=== PATIENT | male | born 1975 | race Caucasian/White ===

== ENCOUNTER 2021-05-02 08:17 | Outpatient (REF) | payer BC, SELFPAY ==
[2021-05-02 12:26] LABS: Alanine Aminotransferase 22 U/L (0-40); Albumin Level 4.1 g/dL (3.5-5.0); Alkaline Phosphatase 77 U/L (39-117); Anion Gap 12 (12-20); Aspartate Amino Transferase 16 U/L (5-37); Bilirubin Total 1.5 mg/dL (0.0-1.0); Blood Urea Nitrogen 12 mg/dL (9-16); Calcium 8.9 mg/dL (8.4-10.2); Carbon Dioxide 26 mmol/L (22-29); Chloride 108 mmol/L (96-108); Cholesterol 191 mg/dL; Estimated Glomerular Filt Rate > 60; Glucose Fasting 106 mg/dL (60-99); HDL Cholesterol 38 mg/dL; LDL Cholesterol Calculated 125 mg/dl; Potassium 4.4 mmol/L (3.3-5.1); Sodium 142 mmol/L (135-145); Total Protein 6.6 g/dL (6.5-8.0); Triglycerides 140 mg/dL
[2021-05-02 12:28] LABS: Prostate Specific Antigen Scr 0.47 ng/mL (<0.05-4.0); TSH reflex Free T4 2.79 uIU/mL (0.32-4.0)
== END 2021-05-02 08:18 | disposition home or self-care (01) ==
LOC: HO.WFDLDS 08:17
PROVIDERS: Visit Provider Family Medicine
DX: Z00.00 Encounter for general adult medical examination without abnormal findings (principal); Z12.5 Encounter for screening for malignant neoplasm of prostate
CPT/HCPCS: 36415; 80053; 80061; 84153; 84443

== ENCOUNTER 2021-05-05 13:59 | Outpatient (REF) | payer BC, SELFPAY | END 2021-05-05 14:00 | disposition home or self-care (01) | LOC: HO.HMGCX 13:59 | PROVIDERS: Visit Provider Student in an Organized Health Care Education/Training Program | DX: Z13.89 Encounter for screening for other disorder (principal) ==

== ENCOUNTER 2021-05-06 09:05 | Outpatient (REF) | payer BC, SELFPAY ==
--- NOTE | ~2021-05-06 | XR_ITS ---
EXAMINATION: XR CERVICAL SPINE CLINICAL INFORMATION: Neck pain COMPARISON: None TECHNIQUE: 6 views of the cervical spine, inclusive of bilateral views, were obtained. FINDINGS: There is mild curvature of the mid cervical spine to the right. Bone alignment is otherwise normal. No fracture or dislocation is seen. Disc spaces are normal. There is moderate right-sided neural foraminal narrowing from bony osteophyte at C3-C4 C4-C5 and mild neuroforaminal narrowing at C5-C6. There is mild left-sided neural foraminal narrowing from bony osteophyte at C3-C4. Prevertebral soft tissues are normal. XR/XR cervical spine 5V IMPRESSION: Neuroforaminal narrowing from bony osteophyte, right greater than left.
== END 2021-05-06 09:06 | disposition home or self-care (01) ==
LOC: HO.HMGCX 09:05
PROVIDERS: PCP Family Medicine; Visit Provider Student in an Organized Health Care Education/Training Program
DX: M54.2 Cervicalgia (principal)
CPT/HCPCS: 72050

== ENCOUNTER 2021-06-29 17:16 | Outpatient (REF) | payer BC, SELFPAY ==
--- NOTE | ~2021-06-29 | XR_ITS ---
EXAMINATION: XR CHEST CLINICAL INFORMATION: Chest pain COMPARISON: Previous chest x-ray July 2016 TECHNIQUE: 2 views of the chest were obtained. FINDINGS: The cardiac and mediastinal contours are stable. There is slight elevation of the right hemidiaphragm that is unchanged. The lungs are clear. There is no pleural effusion or pneumothorax. Bony structures are unremarkable. XR/XR chest 2V IMPRESSION: No evidence for acute disease in the chest.
[2021-06-29 17:25] LABS: MANUAL DIFF FLAG NO
[2021-06-29 17:44] LABS: Basophils Absolute Auto 0.1 X10*3/uL (0.0-0.2); Basophils Percent Auto 0.4 % (0-2); Eosinophils Absolute Auto 0.1 X10*3/uL (0.0-0.4); Hematocrit 46.9 % (42.0-52.0); Hemoglobin 15.8 g/dl (14.0-18.0); Imm Gran Abs Auto 0.03 X10*3/uL (0.00-0.03); Imm Gran Pct Auto 0.2 % (0.0-0.4); Lymphocytes Absolute Auto 4.1 X10*3/uL (1.2-4.9); Lymphocytes Percent Auto 31.6 % (20-40); Mean Corpuscular HGB Conc 33.7 g/dl (31.0-36.0); Mean Platelet Volume 10.3 fL (9.4-12.4); Monocytes Percent Auto 7.6 % (2-11); Neutrophils Absolute Auto 7.6 x10*3/uL (2.0-8.3); Neutrophils Percent Auto 59.2 % (45-73); Platelet Count 287 X10*3/uL (160-400); Red Blood Count 5.27 X10*6/uL (4.60-5.80); Red Cell Distribution Width 12.8 % (11.0-16.0); White Blood Count 12.8 X10*3/uL (4.8-10.8)
[2021-06-29 18:09] LABS: Alanine Aminotransferase 23 U/L (0-40); Albumin Level 4.4 g/dL (3.5-5.0); Alkaline Phosphatase 83 U/L (39-117); Anion Gap 12 (12-20); Aspartate Amino Transferase 15 U/L (5-37); Bilirubin Total 1.4 mg/dL (0.0-1.0); Blood Urea Nitrogen 11 mg/dL (9-16); Calcium 9.6 mg/dL (8.4-10.2); Carbon Dioxide 29 mmol/L (22-29); Chloride 105 mmol/L (96-108); Estimated Glomerular Filt Rate > 60; Glucose Random 78 mg/dL (60-115); Potassium 4.1 mmol/L (3.3-5.1); Sodium 142 mmol/L (135-145); Total Protein 7.4 g/dL (6.5-8.0)
[2021-06-29 18:11] LABS: Troponin-I High Sensitivity < 3.5 ng/L (<3.5-35.0)
== END 2021-06-29 17:17 | disposition home or self-care (01) ==
LOC: HO.XRAY 17:16
PROVIDERS: PCP Family Medicine; Visit Provider Family Medicine
DX: Z00.00 Encounter for general adult medical examination without abnormal findings (principal); R07.9 Chest pain, unspecified
CPT/HCPCS: 36415; 71046; 80053; 84484; 85025

== ENCOUNTER 2021-07-07 11:37 | Outpatient (REF) | payer BC, SELFPAY ==
[2021-07-07 13:58] LABS: MANUAL DIFF FLAG NO
[2021-07-07 14:06] LABS: Basophils Absolute Auto 0.1 X10*3/uL (0.0-0.2); Basophils Percent Auto 0.5 % (0-2); Eosinophils Absolute Auto 0.2 X10*3/uL (0.0-0.4); Eosinophils Percent Auto 1.5 % (0-4); Hematocrit 47.2 % (42.0-52.0); Hemoglobin 15.7 g/dl (14.0-18.0); Imm Gran Abs Auto 0.03 X10*3/uL (0.00-0.03); Imm Gran Pct Auto 0.3 % (0.0-0.4); Lymphocytes Absolute Auto 3.1 X10*3/uL (1.2-4.9); Lymphocytes Percent Auto 28.9 % (20-40); Mean Corpuscular HGB Conc 33.3 g/dl (31.0-36.0); Mean Corpuscular Hemoglobin 29.7 pg (27.0-33.0); Mean Corpuscular Volume 89.4 fL (80.0-98.0); Mean Platelet Volume 11.3 fL (9.4-12.4); Monocytes Percent Auto 8.7 % (2-11); Neutrophils Absolute Auto 6.5 x10*3/uL (2.0-8.3); Neutrophils Percent Auto 60.1 % (45-73); Platelet Count 280 X10*3/uL (160-400); Red Blood Count 5.28 X10*6/uL (4.60-5.80); Red Cell Distribution Width 12.8 % (11.0-16.0); White Blood Count 10.9 X10*3/uL (4.8-10.8)
== END 2021-07-07 11:38 | disposition home or self-care (01) ==
LOC: HO.WFDLDS 11:37
PROVIDERS: Visit Provider Family Medicine
DX: R07.9 Chest pain, unspecified (principal); D72.829 Elevated white blood cell count, unspecified
CPT/HCPCS: 36415; 85025

== ENCOUNTER → 2021-07-11 10:54 | Outpatient (BNVA) | payer BC, SELFPAY | PROVIDERS: PCP Family Medicine; Referring Provider Family Medicine; Visit Provider Internal Medicine Cardiovascular Disease | DX: I10 Essential (primary) hypertension (principal) ==

== ENCOUNTER → 2021-08-04 08:48 | Outpatient (REF) | payer BC, SELFPAY ==
--- NOTE | 2021-08-04 08:50 | CA_ITS ---
Acquisition Time: 2021-08-04 09:03:03 Total Exercise Time: 00:08:29 Test Indications: cHEST PAIN Medications: SEE NOTES Protocol: MAKAYLA Max HR: 155 BPM 89% of Pred: 173 BPM Max BP: 176/082 mmHG Max Work Load: 10.1 METS Exercise stress test with exercise 8 min 29 sec of Makayla protocol, achieving 89%, 10.1 METs, without anginal symptoms, with rare isolated PVC, with normotensive response to exercise, with borderline ST changes, equivocal for ischemia: V4-V6 at peak with corrects quickly. Test reviewed with Dr Romano. Will order a stress echo for further evaluation. Referred By: Patrick Romano Overread By: SHANEL RASMUSSEN
== END ==
LOC: HO.CARD 08:48
PROVIDERS: Visit Provider Internal Medicine Cardiovascular Disease
DX: R07.9 Chest pain, unspecified (principal)
CPT/HCPCS: 93017

== ENCOUNTER → 2021-08-29 10:51 | Outpatient (REF) | payer BC, SELFPAY ==
--- NOTE | 2021-08-29 10:57 | CA_ITS ---
Acquisition Time: 2021-08-29 11:25:20 Total Exercise Time: 00:09:26 Test Indications: CP, HTN Medications: SEE CHART Protocol: MAKAYLA Max HR: 166 BPM 95% of Pred: 173 BPM Max BP: 138/078 mmHG Max Work Load: 10.8 METS Exercise stress ECHO using Makayla protcol total of 9 min 26 sec. METS 10.0, with TAPHR up to 95%. Pt tolerated well, Denies any Cardiac sx. EKG with occasional PVC's in recovery, no ischemic changes seen during exercise or in recovery. ECHO images taken at rest and immediately post peak exercise HR achieved. Definity IV used. Normotensive response to exercise Test reviewed with Dr. Romano Referred By: Cynthia Jay Overread By: Karo Lerma NP
== END ==
LOC: HO.CARD 10:51
PROVIDERS: Visit Provider Nurse Practitioner Family
DX: R94.39 Abnormal result of other cardiovascular function study (principal); R07.9 Chest pain, unspecified; I10 Essential (primary) hypertension
CPT/HCPCS: 93350; Q9957

== ENCOUNTER → 2021-08-30 12:48 | Outpatient (REF) | payer BC, SELFPAY ==
--- NOTE | 2021-08-30 12:51 | CA_ITS ---
Transthoracic Echocardiogram Patient (Last, First, Middle): Ramesh Veras, Gender: Male Date of : 1975 Age: 46 Procedure Date: 08/30/2021 Procedure Type: Transthoracic Echocardiogram Location: OP Height: 177.8 cm Weight: 107.5 kg BSA: 2.24 m2 Heart Rate: bpm BP: 124 / 78 mmHg Release Engineer: Referring MD: Patrick Romano MD Research Statistician: Patrick Romano MD Symptoms: R07.9 - Chest pain, unspecified Study Quality: Fair ECG Rhythm: Sinus Conclusions: - Normal study Findings Left Ventricle Normal left ventricular size, thickness, and systolic function. The visually estimated ejection fraction is between 60-65%. Diastolic function is normal for age. Right Ventricle Normal right ventricular cavity size and systolic function. Atria Both atria are normal in size. There is no evidence of interatrial shunt. Aortic Valve Normal aortic valve structure and function. There is no aortic valve stenosis. There is no aortic valve regurgitation. Mitral Valve Normal mitral valve structure and function. There is no mitral valve regurgitation. There is no mitral valve stenosis. Pulmonic Valve The pulmonic valve is likely normal. Tricuspid Valve Normal tricuspid valve structure. There is trace tricuspid valve regurgitation. The right ventricular systolic pressure is normal. The right ventricular systolic pressure is 14 mmHg. Normal right atrial pressure. There is no evidence of pulmonary hypertension. Great Vessels All visible segments of the aorta are normal in size. The pulmonary artery was not well visualized. Venous The inferior vena cava is normal in size and collapses greater than 50% with inspiration. Pericardium/Pleural There is no evidence of pericardial effusion. Measurements 2D Linear Measurements IVSd: 0.97 0.6-0.9/0.6-1.0 cm LVIDd: 4.15 3.9-5.3/4.2-5.9 cm LVIDd Index: 1.85 2.4-3.2/2.2-3.1 cm/m2 LVIDs: 2.36 2.0-3.6 cm LVPWd: 0.93 0.7-1.1 cm Ao Root: 3.50 2.1-3.5 cm LA Diam: 3.80 2.7-3.8/3.0-4.0 cm LAIDs Index: 1.70 1.5-2.3 cm/m2 LV Mass: 238.46 67-162/88-224 g LV Mass Index: 106.46 43-95/49-115 g/m2 LVOT Diam: 2.10 3.0+(-)1.3 cm 2D Systolic Function EF 4C: 62.30 >55% EF 2C: 56.90 >55% EF BiP: 61.10 >55% Mitral Valve MV Pk E: 0.99 MV PK A: 0.79 MV Decel Time: 195.00 E/A: 1.20 E'Lateral: 11.10 E'Medial: 8.59 E/E' Med: 11.50 E/E' Lat: 8.90 PHT: 57.00 MVA PHT: 3.86 Decel King: 5.09 Aortic Valve AoV Pk Lester: 1.41 AoV Mn Lester: 0.91 AoV VTI: 0.32 AoV Pk Grad: 8.00 Aov Mn Grad: 4.00 SANDRA Cont.VTI: 2.59 LVOT LVOT Pk Lester: 1.15 LVOT Mn Lester: 0.69 LVOT VTI: 0.24 LVOT Pk Grad: 5.00 LVOT Mn Grad: 2.00 LVOT Diam: 2.10 LVOT Area: 3.46 Diastolic Function MV Pk E: 0.99 MV Pk A: 0.79 E/A: 1.20 E'Medial: 8.59 E/E' Med: 11.50 E' Laterial: 11.10 E/E' Lat: 8.90 Tricuspid Valve TR Pk Lester: 1.69 TR Pk Grad: 11.00 RA Press: 3.00 RVSP: 14.00 Great Vessels Aorta Ao Root-2D: 3.50 2.0-3.7 cm Ao Asc: 3.50 2.1-3.4 cm Pulmonary Valve PV Pk Lester: 1.22 Peak PV Grad: 6.00 Updated in Other Vendor System with Status of Final Patrcik Romano MD electronically signed on 08/31/2021 1:52:58 PM with status of Final
== END ==
LOC: HO.CARD 12:48
PROVIDERS: Visit Provider Internal Medicine Cardiovascular Disease
DX: R07.9 Chest pain, unspecified (principal); R94.31 Abnormal electrocardiogram [ECG] [EKG]; I10 Essential (primary) hypertension
CPT/HCPCS: 93306

== ENCOUNTER 2022-05-10 08:03 | Outpatient (REF) | payer BC, SELFPAY ==
[2022-05-10 11:22] LABS: Appearance Urine Turbid; Color Urine Dark Yellow; Glucose Urine UA Negative (Negative); Leukocyte Esterase Urine Negative (Negative); Nitrite Urine Negative (Negative); PH 5.5 (5.0-9.0); Specific Gravity - Urine 1.025 (1.005-1.025); UMIC TRIGGER UA YES; Urine Blood Negative (Negative); Urine Ketones Trace mg/dL (Negative); Urine Protein 30 (1+) mg/dL (Neg-Trace)
[2022-05-10 11:34] LABS: Bacteria Urine None Seen (None Seen); Hyaline Casts Urine 0-2 /LPF (0-2); RBC Urine 0-2 /HPF (0-2); Squamous Epithelial Cell Urine 0-2 /HPF (0-2); WBC Urine 0-5 /HPF (0-5)
[2022-05-10 12:12] LABS: Alanine Aminotransferase 27 U/L (0-40); Albumin Level 4.2 g/dL (3.5-5.0); Alkaline Phosphatase 76 U/L (39-117); Anion Gap 12 (12-20); Aspartate Amino Transferase 18 U/L (5-37); Bilirubin Total 1.7 mg/dL (0.0-1.0); Blood Urea Nitrogen 11 mg/dL (9-16); Calcium 8.8 mg/dL (8.4-10.2); Carbon Dioxide 27 mmol/L (22-29); Chloride 107 mmol/L (96-108); Cholesterol 201 mg/dL; Estimated Glomerular Filt Rate > 60; Glucose Fasting 111 mg/dL (60-99); HDL Cholesterol 40 mg/dL; LDL Cholesterol Calculated 142 mg/dl; Potassium 4.4 mmol/L (3.3-5.1); Sodium 142 mmol/L (135-145); Total Protein 6.7 g/dL (6.5-8.0); Triglycerides 95 mg/dL
[2022-05-10 12:17] LABS: Prostate Specific Antigen Scr 0.72 ng/mL (<0.05-4.0); TSH reflex Free T4 1.93 uIU/mL (0.32-4.0)
[2022-05-10 12:56] LABS: Creatinine Urine 332.25 mg/dL; Microalbum/Creatinine Ratio Ur 32.8 ug/mg cr
== END 2022-05-10 08:04 | disposition home or self-care (01) ==
LOC: HO.WFDLDS 08:03
PROVIDERS: Visit Provider Family Medicine
DX: Z00.00 Encounter for general adult medical examination without abnormal findings (principal); Z12.5 Encounter for screening for malignant neoplasm of prostate; I10 Essential (primary) hypertension
CPT/HCPCS: 36415; 80053; 80061; 81001; 82043; 84153; 84443

== ENCOUNTER → 2022-06-19 13:25 | Outpatient (BNVA) | payer BC, SELFPAY | PROVIDERS: PCP Family Medicine; Visit Provider Physician Assistant | DX: Z13.89 Encounter for screening for other disorder (principal) ==

== ENCOUNTER 2022-08-22 11:18 | Outpatient (REF) | payer BC, SELFPAY ==
[2022-08-22 14:24] LABS: Alanine Aminotransferase 22 U/L (0-40); Albumin Level 4.3 g/dL (3.5-5.0); Alkaline Phosphatase 82 U/L (39-117); Anion Gap 13 (12-20); Aspartate Amino Transferase 18 U/L (5-37); Bilirubin Total 2.3 mg/dL (0.0-1.0); Blood Urea Nitrogen 12 mg/dL (9-16); Calcium 9.6 mg/dL (8.4-10.2); Carbon Dioxide 26 mmol/L (22-29); Chloride 108 mmol/L (96-108); Cholesterol 127 mg/dL; Estimated Glomerular Filt Rate > 60; Glucose Fasting 104 mg/dL (60-99); HDL Cholesterol 41 mg/dL; LDL Cholesterol Calculated 66 mg/dl; Potassium 4.3 mmol/L (3.3-5.1); Sodium 143 mmol/L (135-145); Total Protein 7.1 g/dL (6.5-8.0); Triglycerides 101 mg/dL
== END 2022-08-22 11:19 | disposition home or self-care (01) ==
LOC: HO.WFDLDS 11:18
PROVIDERS: Visit Provider Family Medicine
DX: Z00.00 Encounter for general adult medical examination without abnormal findings (principal); R73.01 Impaired fasting glucose
CPT/HCPCS: 36415; 80053; 80061; 83036

== ENCOUNTER 2022-08-28 15:42 | Outpatient (AMB) | payer BC, SELFPAY ==
--- NOTE | 2022-08-28 15:49 | A.OFFPC_ITS ---
Vital Signs 08/28/22 15:52 Height 5 ft 10 in Weight 238 lb BMI 34.1 BP 130/78 Blood Pressure Location Lt brachial Position Sitting Pulse 63 Pulse Source Pulse Oximeter Pulse Oximetry (%) 94 Oxygen Delivery Method Room Air Intake Visit Reasons: f/u hypertension and hypercholesterolemia Intake Note: Patient is here to follow up o0n his blood pressure and cholesterol. Allergies No Known Allergies Allergy (Verified 08/28/22 15:53) Tobacco use date assessed: 08/28/22 Dental Screening Dental Screen Date: 08/28/22 Did you have a dental visit in the last 12 months?: Yes Did you have a dental problem in the last 6 months where you did not have access to dental care?: No Was dental information given to patient?: No HPI f/u hypertension and hypercholesterolemia HPI Details 47 y/o male presents to f/u hypertension and hypercholesterolemia. Labs were drawn 08/22/22. Reviewed labs with pt. A1c 5.1%. Triglycerides 101. TC 127. LDL 66. HDL 41. He is on artovastatin 10mg daily. Blood pressure today 130/78. He is on lisinopril 30mg daily. 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 1. Little interest or pleasure in doing things: not at all 2. Feeling down, depressed, or hopeless: not at all 3. Trouble falling or staying asleep, or sleeping too much: not at all 4. Feeling tired or having little energy: not at all 5. Poor appetite or overeating: not at all 6. Feeling bad about yourself - or that you are a failure or have let yourself or your family down: not at all 7. Trouble concentrating on things, such as reading the newspaper or watching television: not at all 8. Moving or speaking so slowly that other people could have noticed. Or the opposite - being so fidgety or restless that you have been moving around a lot more than usual: not at all 9. Thoughts that you would be better off or of hurting yourself in some way: not at all Total score: 0 Source: Developed by Drs. Balwinder Otero, Marisa Arvizu, Sami Walker and colleagues, with an educational roxana from [employer]. Thrive Questionnaire Date Thrive assessed: 03/27/21 I am a: Patient What is your living situation today?: I have a steady place to live Within the past 12 months, did the food you bought not last and you didn't have the money to get more?: Never true Within the past 12 months, did you worry whether your food would run out before you got money to buy more?: Never true Do you have trouble paying for medicines?: No Do you have trouble getting transportation to medical appointments?: No Do you have trouble paying your heating and electricity bill?: No Do you have trouble taking care of your child, family member or friend?: No Do you have trouble with day-to-day activities such as bathing, preparing meals, shopping, managing finances, etc.?: No Are you currently unemployed and looking for a job?: No Are you interested in more education?: No AUDIT C Alcohol Use Questionnaire (AUDIT-C) 1. How often do you have a drink containing alcohol?: Never 3. How often do you have six or more drinks on one occasion?: Never Total Score: 0 JOHN-7 AMB Questionnaire JOHN-7 Date JOHN - 7 assessed: 08/28/22 Feeling nervous, anxious, or on edge: 0 = Not at all Not being able to stop or control worryin = Not at all Worrying too much about different things: 0 = Not at all Trouble relaxin = Not at all Being so restless that it is hard to sit still: 0 = Not at all Becoming easily annoyed or irritable: 0 = Not at all Feeling afraid as if something awful might happen: 0 = Not at all Total JOHN-7 score (0-4 normal; 5-9 mild; 10-14 moderate; 15-21 severe): 0 Source: Developed by Drs. Balwinder Otero, Marisa Arvizu, Sami Walker and colleagues, with an educational roxana from [employer]. Review of Systems Const Denies chills, Denies fatigue, Denies fever(s), Denies headache(s) and Denies weakness ENT Denies dizziness and Denies headache(s) Card Denies chest pain, Denies lightheadedness, Denies dyspnea and Denies other (Palpitations) Resp Denies cough, Denies dyspnea, Denies wheezing and Denies other ( shortness of breath) Musc Denies numbness and Denies tingling Neuro Denies dizziness, Denies headache(s), Denies numbness, Denies tingling, Denies paresthesias and Denies weakness Psych Denies anxiety and Denies depression Endo Denies fatigue Aller/Immun Denies wheezing Physical exam (Primary Care) Vital Signs: Last Vital Signs Pulse 63 08/28/22 15:52 BP 130/78 08/28/22 15:52 Pulse Ox 94 08/28/22 15:52 Oxygen Delivery Method Room Air 08/28/22 15:52 BMI result Body Mass Index 34.1 Tobacco/Smoking Status: Tobacco use Status Tobacco use date assessed 08/28/22 08/28/22 16:00 Patient Tobacco Use Status Never used Tobacco 08/28/22 15:51 e-Cigarette/Vaping Use Never Used 08/28/22 15:51 PHQ-9: PHQ-9 Score PHQ-9: Total score 0 08/28/22 16:24 Thrive Assessment: Date of Thrive Assessment Date Thrive assessed 03/27/21 08/28/22 15:51 Const General: no acute distress and well developed Nutritional Appearance: well nourished Orientation/consciousness: patient oriented x3 HENMT Head: Yes normocephalic and Yes atraumatic Eyes General: appearance normal, both eyes and all related structures Pupils: Equal, round and reactive pupils present EOM: EOMs intact bilaterally Resp Effort & Inspection: normal respiratory effort Auscultation: clear to auscultation bilaterally Cardio Rate: regular rate Rhythm: regular rhythm Heart sounds: S1 normal heart sound present, S2 normal heart sound present, no gallops, no murmurs and no rubs Neuro General: patient oriented x3 and gait normal Cranial nerves: Yes Equal, round and reactive pupils present Psych Affect: normal affect Assessment and Plan Assessment & Plan (1) Hypertension: Code(s): I10 - Essential (primary) hypertension Plan: Blood pressure is controlled. Goal is less than 140/90 Continue current medication (2) Hypercholesterolemia: Code(s): E78.00 - Pure hypercholesterolemia, unspecified Plan: LDL cholesterol significantly improved on atorvastatin 10 mg daily. He can take 5 mg daily or take current tablet every other day Will follow-up in 3 months (3) Elevated fasting blood sugar: Code(s): R73.01 - Impaired fasting glucose Plan: Still has elevated fasting blood sugars though he is not sure he had a good fast at this lab draw. Prior fasting blood sugar was higher. A1c is in normal range Likely insulin resistance Encouraged diet lower in sugars and starches Coding Level of Care Code Est Pt Level 4 (06448) Diagnoses Hypertension I10 Hypercholesterolemia E78.00 Elevated fasting blood sugar R73.01
[2022-08-28 15:52] VITALS: BP 130/78; PULSE 63; O2SAT 94; BMI 34.1
== END 2022-08-28 16:33 | disposition home or self-care (01) ==
PROVIDERS: Visit Provider Family Medicine
DX: I10 Essential (primary) hypertension (principal); E78.00 Pure hypercholesterolemia, unspecified; R73.01 Impaired fasting glucose
CPT/HCPCS: 99214

== ENCOUNTER 2022-11-26 09:19 | Outpatient (AMB) | payer BC, SELFPAY ==
[2022-11-26 09:50] VITALS: BP 100/68; PULSE 103; TEMP 38.3; O2SAT 97; BMI 33.7
--- NOTE | 2022-11-26 09:50 | MHC.OFFWIV ---
Intake Vital Signs 11/26/22 09:50 Height 5 ft 10 in Weight 235 lb BMI 33.7 BP 100/68 Blood Pressure Location Lt brachial Position Sitting Pulse 103 H Pulse Source Pulse Oximeter Temp 101.0 F H Temp Source Oral Pulse Oximetry (%) 97 Oxygen Delivery Method Room Air Intake Visit Reasons: EP Flu like symptoms (masked) lobby Intake Note: Pt is here today for a walk in visit. Pt c/o body aches, headaches, little bit of cough. Patient Tobacco Use Status: Never used Tobacco Allergies No Known Allergies Allergy (Verified 11/26/22 09:59) Medication List - Last Reconciled 11/26/22 by Ruddy aKtz MD atorvastatin 10 mg PO BEDTIME 90 days bisacodyl (Dulcolax (bisacodyl)) 10 mg (2 x 5 mg) PO ONCE 1 day cyclobenzaprine 10 mg PO BEDTIME lisinopril 30 mg (1.5 x 20 mg) PO DAILY meloxicam 15 mg PO DAILY polyethylene glycol 3350 (Miralax) 238 grams PO ONCE PRN 1 day Do you need a note to return to daycare/school/sports/work: No HPI EP Flu like symptoms (masked) lobby HPI Details Patient presents for a sick visit. Reporting symptoms of sinus congestion, sore throat and difficulty swallowing. Low-grade fever. No family member is sick. No recent travel. Patient reports symptoms of malaise and fatigue. 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 Current occupational exposures/hazards: No Cognitive needs: No Hearing needs: No Vision needs: No Physical Exam Vital Signs: Last Vital Signs Temp 101.0 F H 11/26/22 09:50 Pulse 103 H 11/26/22 09:50 BP 100/68 11/26/22 09:50 Pulse Ox 97 11/26/22 09:50 Oxygen Delivery Method Room Air 11/26/22 09:50 BMI result Body Mass Index 33.7 Const General: cooperative and healthy appearing Nutritional Appearance: well nourished Orientation/consciousness: patient oriented x3 Limitations: no limitations HEENT Head: Yes normal to inspection Eyes General: appearance normal, both eyes and all related structures Neck Neck: Yes normal visual inspection Chest Chest palpation & inspection: normal palpation of entire chest wall Resp Effort & Inspection: normal respiratory effort Neuro General: patient oriented x3 Assessment & Plan Assessment & Plan (1) Upper respiratory tract infection: Code(s): J06.9 - Acute upper respiratory infection, unspecified Qualifiers: URI type: unspecified viral URI Qualified Code(s): J06.9 - Acute upper respiratory infection, unspecified Plan: Increase fluid intake. Tylenol for aches and pains. If symptoms worsen, follow-up here for a recheck. No antibiotics needed. Orders: Orders SARS-CoV2/FLU/RSV Today R43.9 - Unspecified disturbances of smell and taste Coding Level of Care Code Est Pt Level 3 (67504) Diagnoses Viral upper respiratory tract infection J06.9 URI type: unspecified viral URI
== END 2022-11-26 10:55 | disposition home or self-care (01) ==
PROVIDERS: PCP Family Medicine; Visit Provider Internal Medicine
DX: J06.9 Acute upper respiratory infection, unspecified (principal)
CPT/HCPCS: 99213

== ENCOUNTER 2022-11-26 13:35 | Outpatient (REF) | payer BC, SELFPAY | END 2022-11-26 13:36 | disposition home or self-care (01) | LOC: HO.LNP 13:35 | PROVIDERS: Visit Provider Internal Medicine | DX: R43.9 Unspecified disturbances of smell and taste (principal); Z20.828 Contact with and (suspected) exposure to other viral communicable diseases | CPT/HCPCS: 0241U ==

== ENCOUNTER 2022-12-25 15:32 | Outpatient (AMB) | payer BC, SELFPAY ==
[2022-12-25 15:37] VITALS: BP 112/72; PULSE 65; O2SAT 95; BMI 34.4
--- NOTE | 2022-12-25 15:37 | A.OFFPC_ITS ---
Vital Signs 12/25/22 15:37 Height 5 ft 10 in Weight 240 lb BMI 34.4 BP 112/72 Blood Pressure Location Rt brachial Position Sitting Pulse 65 Pulse Source Pulse Oximeter Pulse Oximetry (%) 95 Oxygen Delivery Method Room Air Intake Visit Reasons: f/u hypertension and hypercholesterolemia Intake Note: Patient is here to follow up on hypertension and hypercholesterolemia today. Allergies No Known Allergies Allergy (Verified 12/25/22 15:40) Medication List - Last Reconciled 12/25/22 by Robert Olson MD atorvastatin 10 mg PO BEDTIME 90 days bisacodyl (Dulcolax (bisacodyl)) 10 mg (2 x 5 mg) PO ONCE 1 day cyclobenzaprine 10 mg PO BEDTIME lisinopril 30 mg (1.5 x 20 mg) PO DAILY meloxicam 15 mg PO DAILY polyethylene glycol 3350 (Miralax) 238 grams PO ONCE PRN 1 day Tobacco use date assessed: 12/25/22 HPI f/u hypertension and hypercholesterolemia HPI Details 47 y/o male presents to f/u hypertension and hypercholesterolemia. No recent lipid panel to review. Blood pressure today 112/72. He is on lisinopril 30mg daily. He continues to watch the salt and sodium in his diet. HPI Comments History of Present Illness Details Documentation assistance for Robetr Olson MD, was provided by [employer],?[employer] Transport Driver on 12/25/2022 3:49 PM YVETTE. I, Dr. Olsno, have read, observed, and verified documentation.? 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 Balwinder Otero, Marisa Arvizu, Sami Walker and colleagues, with an educational roxana from [employer]. Review of Systems Const Denies chills, Denies fatigue, Denies fever(s), Denies headache(s) and Denies weakness ENT Denies dizziness and Denies headache(s) Card Denies dyspnea Resp Denies cough, Denies dyspnea, Denies wheezing and Denies other (shortness of breath) Musc Denies numbness and Denies tingling Neuro Denies dizziness, Denies headache(s), Denies numbness, Denies tingling and Denies weakness Psych Denies anxiety and Denies depression Endo Denies fatigue Aller/Immun Denies wheezing Physical exam (Primary Care) Vital Signs: Last Vital Signs Pulse 65 12/25/22 15:37 BP 112/72 12/25/22 15:37 Pulse Ox 95 12/25/22 15:37 Oxygen Delivery Method Room Air 12/25/22 15:37 BMI result Body Mass Index 34.4 Tobacco/Smoking Status: Tobacco use Status Tobacco use date assessed 12/25/22 12/25/22 15:44 Patient Tobacco Use Status Never used Tobacco 12/25/22 15:38 e-Cigarette/Vaping Use Never Used 12/25/22 15:38 Thrive Assessment: Date of Thrive Assessment Date Thrive assessed 03/27/21 12/25/22 15:38 Const General: well developed; No acute distress Nutritional Appearance: well nourished and obese Orientation/consciousness: patient oriented x3 HENMT Head: Yes normocephalic and Yes atraumatic Eyes General: appearance normal, both eyes and all related structures Pupils: Equal, round and reactive pupils present EOM: EOMs intact bilaterally Resp Effort & Inspection: normal respiratory effort Auscultation: clear to auscultation bilaterally Cardio Rate: regular rate Rhythm: regular rhythm Heart sounds: S1 normal heart sound present, S2 normal heart sound present, no gallops, no murmurs and no rubs Neuro General: patient oriented x3 and gait normal Cranial nerves: Yes Equal, round and reactive pupils present Psych Affect: normal affect Assessment and Plan Assessment & Plan (1) Hypercholesterolemia: Code(s): E78.00 - Pure hypercholesterolemia, unspecified Plan: Had?decreased?atorvastatin?at?his?last?visit. Has?not?had?his?labs?drawn?yet?but?will?do?so?prior?to?next?visit Continue?atorvastatin?10?mg?daily (2) Hypertension: Code(s): I10 - Essential (primary) hypertension Plan: Blood?pressure?is?well?controlled.??Goal?is?less?than?140/90 Continue?current?medication Coding Level of Care Code Est Pt Level 3 (22015) Diagnoses Hypercholesterolemia E78.00 Hypertension I10
== END 2022-12-25 15:54 | disposition home or self-care (01) ==
PROVIDERS: PCP Family Medicine; Visit Provider Family Medicine
DX: E78.00 Pure hypercholesterolemia, unspecified (principal); I10 Essential (primary) hypertension
CPT/HCPCS: 99213

== ENCOUNTER 2023-02-05 07:27 | Day surgery (SDC) | payer BC, SELFPAY ==
[2023-02-01 11:09] VITALS: BMI 34.4
--- NOTE | 2023-02-04 12:19 | HO.ANESPROP2 ---
Documented by User: Flores Monroe NP 02/04/23 12:20 HPI - Anesthesia Eval Consult details Narrative: 47yo M for Colonoscopy PMFSH Active Problems Active Problems: All Active Problems (Updated 02/01/23 @ 11:10 by Lzia Faria RN) Upper respiratory tract infection (Acute) Lumbosacral strain (Acute) Screening for colon cancer (Acute) Hypercholesterolemia (Acute) Cough (Acute) Low HDL (under 40) (Acute) Elevated fasting blood sugar (Acute) Adult general medical exam (Acute) Family history of prostate cancer (Acute) Cervicalgia (Acute) Hypertension (Acute) Past Medical History Medical History Chest pain Elevated cholesterol Hypertension Surgical History Surgical History H/O nasal septoplasty Social History Social History Housing: Apartment Patient Tobacco Use Status: Never used Tobacco e-Cigarette/Vaping Use: Never Used Second Hand Smoke Exposure: No Are you DNR?: No Advance Directives: No Advance Directives Information Provided: Yes Nutrition Risks: No Nutritional Risk service: No Current occupational status: employed 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 Current occupational exposures/hazards: No Cognitive needs: No Hearing needs: No Vision needs: No Meds Allergies Allergy/AdvReac Type Severity Reaction Status Date / Time No Known Allergies Allergy Verified 02/05/23 07:44 Exam Height,Weight and Vital Signs: Height 5 ft 10 in Weight 108.862 kg Pertinent Lab Results Pertinent Lab Results: Laboratory Tests 07/07/21 08/22/22 11:40 11:20 WBC 10.9 H Hgb 15.7 Hct 47.2 Plt Count 280 Sodium 143 Potassium 4.3 Chloride 108 Carbon Dioxide 26 BUN 12 Creatinine 0.79 Narrative Narrative: ECHO and Stress ECHO 2021 both nml studies Assessment and Plan Assessment Anesthesia Assessment: Chart Reviewed Documented by User: Christophe Garcia MD 02/05/23 08:12 [facility] Past Medical History Medical History Chest pain Elevated cholesterol Hypertension Family History Family history of problems with anesthesia: No Surgical History Surgical History H/O nasal septoplasty History of Problems with Anesthesia: No Social History Social History Housing: Apartment Patient Tobacco Use Status: Never used Tobacco e-Cigarette/Vaping Use: Never Used Second Hand Smoke Exposure: No Are you DNR?: No Advance Directives: No Advance Directives Information Provided: Yes Nutrition Risks: No Nutritional Risk service: No Current occupational status: employed 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 Current occupational exposures/hazards: No Cognitive needs: No Hearing needs: No Vision needs: No Meds Allergies Allergy/AdvReac Type Severity Reaction Status Date / Time No Known Allergies Allergy Verified 02/05/23 07:44 Exam Airway Mallampati Class: III TM Dist: >3cm Neck ROM: Full Loose/Missing/Broken Teeth: No Heart: rrr+[id number] Lungs: cta b/l Assessment and Plan Assessment Anesthesia Assessment: Anesthesia Plan Discussed Final Anesthetic Review Family History of Problems with Anesthesia: No History of Problems with Anesthesia: No NPO: Yes ASA Class: II Final Preanesthetic Review: No Changes in Pt Med Stat, Meds/Allgs Chart Reviewed, Consent Obtained/Reviewed and Anes Risks/Benef Reviewed Patient Risk: Intermediate Procedure Risk: Intermediate Assessment/Block/Sedation in SS: Assess/Block/Sedation-SS Anesthetic Plan Anesthetic Plan: MAC: and Agree w/ Assess. and Plan Disposition: Standard PACU
[2023-02-05 07:45] VITALS: BMI 34.4
[2023-02-05] MEDS: Lactated Ringers 1,000 ML 100 ML IVCONT (07:50)
[2023-02-05 07:57] VITALS: BP 132/78; PULSE 68; RESP 18; TEMP 36.7; O2SAT 96
--- NOTE | 2023-02-05 08:30 | MHC.SHP ---
Pre-Procedural Eval Section A Date of Service: 02/05/23 Section B Chief Complaint: Encounter for screening for malignant neoplasm of Relevant Family History (Specify if Yes): No Relevant Social History: None Present Medications: see Short Stay Collaborative assessment Medical History: Significant History (HTN, HLP) History of Previous Operations: Relevant previous surgery/procedure and date(s) (septoplasty) Allergies: Allergies Allergy/AdvReac Type Severity Reaction Status Date / Time No Known Allergies Allergy Verified 02/05/23 07:44 Review of Systems Sugical H&P ROS: Negative: Constitution, Cardiovascular, Respiratory, Neurological, Psychiatric, Hem-Onc, Allergic/Immunologic, Gastrointestinal, Genitourinary, Musculoskeletal, Integumentary, Endocrine and Eyes/Ears/Nose/Throat Exam Surgical H&P Exam: Normal: HEENT, Normal: Heart, Normal: Lungs, Normal: Extremities, Normal: Abdomen, Normal: Skin and Normal: Neurological Plan Diagnosis/Plan: Unchanged I have reviewed the history and physical and performed a pertinent physical examination on my patient. No changes have occurred unless specified. Time Spent With Patient Time: Total time managing care of this patient today ____ minutes.
--- NOTE | 2023-02-05 08:30 | W.PM.OPN ---
Operative Note Operative Note Date of Service: 02/05/23 Narrative: Operative Information Procedure Description: Colonoscopy Indication: screening Anesthesia: MAC COLONOSCOPY Instrument: Olympus variable stiffness pediatric scope 190L Colonoscopy Monitoring: Vital signs and clinical assessment, continuous EKG monitoring, Pulse oximetry, Carbon Dioxide monitoring and blood pressure monitoring were done throughout the procedure. Colon withdrawal time was 20 minutes. Procedure: The patient was placed in the left lateral decubitis position and pre-procedure medications were administered. After a digital rectal examination of the ano-rectum, the video colonoscope was inserted into the rectum and advanced through the colon to the cecum/TI. The colonoscope was slowly withdrawn in a retrograde panoramic fashion and the colon mucosa was carefully examined including a retroflexed view of the rectum. Findings and interventions are described below. Procedure Difficulty: easy Findings: Terminal Ileum-normal Cecum:normal Ascending Colon: 4-5 mm sessile polyp removed with cold forceps Transverse Colon -normal Descending Colon: flat polyp 6-8 mm injected with eleview and then removed with cold snare Sigmoid Colon: normal Rectum: Retroflexion with small internal hemorrhoids, grade I, 5-7 mm sessile polyp removed with cold snare Anorectum - normal Colon preparation: Justice Bowel Preparation Scale Right colon; 2 Transverse colon: 3 Left colon; 3 (0 = Unprepared colon segment with mucosa not seen due to solid stool that cannot be cleared. 1 = Portion of mucosa of the colon segment seen, but other areas of the colon segment not well seen due to staining, residual stool and/or opaque liquid. 2 = Minor amount of residual staining, small fragments of stool and/or opaque liquid, but mucosa of colon segment seen well. 3 = Entire mucosa of colon segment seen well with no residual staining, small fragments of stool or opaque liquid) Impression and Post Procedure Diagnosis: polyps internal hemorrhoids Plan: High fiber diet leaflet Avoid straining at stool, epsom salts and sitz bath, anusol supps or cream Repeat Colonoscopy in 5-7 years if adenomatous polyps, 10 yrs if hyperplastic or benign or earlier if clinically indicated Above findings were reviewed with the patient and relevant handouts were provided if indicated.
[2023-02-05 09:10] VITALS: BP 102/61; PULSE 68; RESP 16; TEMP 36.1; O2SAT 97
[2023-02-05 09:25] VITALS: BP 133/86; PULSE 60; RESP 16; TEMP 36.2; O2SAT 98
== END 2023-02-05 09:53 | disposition home or self-care (01) ==
PROVIDERS: PCP Family Medicine; Visit Provider Internal Medicine Gastroenterology
PROC: 0DJD8ZZ Inspection of Lower Intestinal Tract, Via Natural or Artificial Opening Endoscopic (ICD-10-PCS; CPT 45378; principal; 2023-02-05 09:00)
DX: Z12.11 Encounter for screening for malignant neoplasm of colon (principal); D12.4 Benign neoplasm of descending colon; K62.1 Rectal polyp; K64.0 First degree hemorrhoids; I10 Essential (primary) hypertension; E78.00 Pure hypercholesterolemia, unspecified; Z79.899 Other long term (current) drug therapy; Z79.02 Long term (current) use of antithrombotics/antiplatelets
CPT/HCPCS: 45385; 45380; 45381; 88305; J2704

== ENCOUNTER → 2023-02-05 07:27 | Outpatient (BNV) | payer BC, SELFPAY | PROVIDERS: PCP Family Medicine; Visit Provider Internal Medicine Gastroenterology | DX: Z12.11 Encounter for screening for malignant neoplasm of colon (principal); D12.2 Benign neoplasm of ascending colon; D12.4 Benign neoplasm of descending colon; D12.8 Benign neoplasm of rectum; K64.0 First degree hemorrhoids | CPT/HCPCS: 45380; 45381; 45385 ==

== ENCOUNTER 2023-02-20 09:49 | Outpatient (AMB) | payer BC, SELFPAY ==
--- NOTE | 2023-02-20 09:54 | MHC.OFFVIS ---
Intake Vital Signs 02/20/23 09:55 Height 5 ft 10 in Weight 227 lb BMI 32.6 BP 109/71 Blood Pressure Location Lt brachial Position Sitting Pulse 60 Intake Visit Reasons: S/p colon Jack Intake Note: Patient Colonoscopy result Patient denies any GI issues. Cement Patcher Required: No Accompanied by: Self / Same As Patient Allergies No Known Allergies Allergy (Verified 02/20/23 09:54) Medication List - Last Reconciled 02/20/23 by Tatianna Greer PA-C atorvastatin 10 mg PO BEDTIME 90 days lisinopril 30 mg (1.5 x 20 mg) PO DAILY HPI HPI Comments History of Present Illness Details A 47 y/o male f/u after index screening colonoscopy with polypectomy- No issues Appetite is good Bowels ok Follows a vegan diet- No nausea, vomiting, hematemesis, hematochezia fever to [facility] Medical History (Updated 02/20/23 @ 10:04 by Tatianna Greer PA-C) Chest pain Elevated cholesterol Hypertension Surgical History Hx of colonoscopy H/O nasal septoplasty Social History Housing: Apartment Patient Tobacco Use Status: Never used Tobacco e-Cigarette/Vaping Use: Never Used Second Hand Smoke Exposure: No service: No Current occupational status: employed 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 Current occupational exposures/hazards: No Cognitive needs: No Hearing needs: No Vision needs: No Review of Systems Const All systems reviewed & are unremarkable except as noted in HPI and below Card Denies chest pain and Denies dyspnea Resp Denies dyspnea GI Denies abdominal pain Physical Exam Vital Signs: Last Vital Signs Pulse 60 02/20/23 09:55 BP 109/71 02/20/23 09:55 BMI result Body Mass Index 32.6 Const General: cooperative, healthy appearing, comfortable and no acute distress Orientation/consciousness: patient oriented x3 Limitations: no limitations Eyes Sclerae: sclerae normal Resp Effort & Inspection: normal respiratory effort and able to speak in complete sentences Skin General skin exam: no rashes or lesions noted Neuro General: patient oriented x3 Extrem General: Yes full ROM Psych Appearance: grossly normal and well kempt Mental Status: mental status grossly normal Speech and movement: Normal speech and movement present and Clear speech present Affect: normal affect Attitude: cooperative Thought process: Normal thought process present Thought content: Normal thought content present Insight: Good insight present (Psych) Judgement: Good judgement present (Psych) Results Reviewed Results Reviewed: mpression and Post Procedure Diagnosis: polyps internal hemorrhoids Plan: High fiber diet leaflet Avoid straining at stool, epsom salts and sitz bath, anusol supps or cream Repeat Colonoscopy in 5-7 years if adenomatous polyps, 10 yrs if hyperplastic or benign or earlier if clinically indicated Name: Ramesh Veras Age/Sex: 47/M Attending: Kale Jack MD : 1975 Submitted by: Kale Jack MD Copies to: Robert Olson MD MR #: [id number] Status: [facility] Collected: 02/05/23 Location: [facility] Received: 02/05/23 Diagnosis A. Colon, ascending, polypectomy: Colonic mucosa with prominent lymphoid aggregate. B. Colon, descending, polypectomy: Tubular adenoma; negative for high-grade dysplasia or carcinoma. C. Rectum, polypectomy: Colonic mucosa with prominent lymphoid aggregate. Clinical History Pre-Op Dx: Screening Post-Op Dx: Colon polyps, hemorrhoids Microscopic Description A-C. Microscopic sections reviewed. Material Received A. Ascending colon polyp B. Descending colon polyp C. Rectal polyp Gross Description Received in 3 parts. Part A: Received in formalin labeled ?ascending colon polyp? are 2 tolentino-pink irregular tissue fragments measuring 0.15 and 0.25 cm, submitted in toto in a cassette labeled A. Part B: Received in formalin labeled ?descending colon polyps (sic)? along with cloudy tolentino-yellow mucogelatinous material are 2 tolentino and tolentino-pink irregular tissue fragments each measuring 0.15 cm, submitted in toto in a cassette labeled B. Part C: Received in formalin labeled ?rectal polyp? are 2 tolentino-white and tolentino-pink irregular and rectangular tissue fragments measuring 0.25 and 0.45 cm, submitted in toto in a cassette labeled C. CEDS Copies To Robert Olson MD [address] Patient: Ramesh Veras Age/Sex: 47/M MR#: [id number] Page 1 of 2 Assessment & Plan Assessment & Plan (1) Serrated adenoma of colon: Code(s): D12.6 - Benign neoplasm of colon, unspecified Plan: All first-degree relatives should begin colon screening by age 38 Repeat colonoscopy 5 years for polyp surveillance (2) Internal hemorrhoids: Code(s): K64.8 - Other hemorrhoids Plan: Maintain high-fiber diet avoid straining Plan Place reminder for repeat colonoscopy 5 years Maintain high-fiber diet Avoid straining with hemorrhoids Patient Instructions: Repeat asymptomatic colonoscopy 5 years All first-degree relatives begin screening at age 38 Maintain high-fiber diet Avoid straining Encouraged to call questions or concerns Appreciate the opportunity assist in the care this pleasant Gent Coding Level of Care Code Est Pt Level 3 (93849) Diagnoses Serrated adenoma of colon D12.6 Internal hemorrhoids K64.8 Time Spent (min) 20
[2023-02-20 09:55] VITALS: BP 109/71; PULSE 60; BMI 32.6
== END 2023-02-20 10:51 | disposition home or self-care (01) ==
PROVIDERS: PCP Family Medicine; Visit Provider Physician Assistant
DX: D12.6 Benign neoplasm of colon, unspecified (principal); K64.8 Other hemorrhoids
CPT/HCPCS: 99213

== ENCOUNTER → 2023-02-20 09:49 | Outpatient (BNVA) | payer BC, SELFPAY | PROVIDERS: PCP Family Medicine; Visit Provider Physician Assistant ==

== ENCOUNTER 2023-03-22 08:05 | Outpatient (REF) | payer BC, SELFPAY ==
[2023-03-22 12:32] LABS: Alanine Aminotransferase 20 U/L (0-40); Alkaline Phosphatase 77 U/L (39-117); Anion Gap 12 (12-20); Aspartate Amino Transferase 14 U/L (5-37); Bilirubin Total 1.5 mg/dL (0.0-1.0); Blood Urea Nitrogen 15 mg/dL (9-16); Calcium 8.8 mg/dL (8.4-10.2); Carbon Dioxide 28 mmol/L (22-29); Chloride 106 mmol/L (96-108); Cholesterol 163 mg/dL (<200); Estimated Glomerular Filt Rate > 60; Glucose Fasting 106 mg/dL (60-99); HDL Cholesterol 45 mg/dL (>40); LDL Cholesterol Calculated 96 mg/dL (<100); Potassium 4.5 mmol/L (3.3-5.1); Sodium 141 mmol/L (135-145); Total Protein 6.9 g/dL (6.5-8.0); Triglycerides 112 mg/dL (<150)
== END 2023-03-22 08:06 | disposition home or self-care (01) ==
LOC: HO.WFDLDS 08:05
PROVIDERS: Visit Provider Family Medicine
DX: Z00.00 Encounter for general adult medical examination without abnormal findings (principal); I10 Essential (primary) hypertension; E78.00 Pure hypercholesterolemia, unspecified
CPT/HCPCS: 36415; 80053; 80061

== ENCOUNTER 2023-03-26 16:00 | Outpatient (AMB) | payer BC, SELFPAY ==
[2023-03-26 16:05] VITALS: BP 112/64; PULSE 61; O2SAT 97; BMI 32.2
--- NOTE | 2023-03-26 16:05 | MHC.PC.OV ---
Vital Signs 03/26/23 16:05 Height 5 ft 10 in Weight 224 lb 7 oz BMI 32.2 BP 112/64 Blood Pressure Location Lt brachial Position Sitting Pulse 61 Pulse Source Pulse Oximeter Pulse Oximetry (%) 97 Oxygen Delivery Method Room Air Intake Visit Reasons: f/u hypertension and hypercholesterolemia Intake Note: Patient is here to follow up 0n hypertension and hypercholeterolemia. Allergies No Known Allergies Allergy (Verified 03/26/23 16:07) Tobacco use date assessed: 03/26/23 Dental Screening Dental Screen Date: 03/26/23 Did you have a dental visit in the last 12 months?: Yes Did you have a dental problem in the last 6 months where you did not have access to dental care?: No Was dental information given to patient?: Patient has dentist HPI f/u hypertension and hypercholesterolemia HPI Details 47 y/o male presents to f/u hypertension and hypercholesterolemia. Labs were drawn 03/22/23. Reviewed labs with pt. Triglycerides 112. TC 163. LDL 96. HDL 45. He is on artovastatin 10mg daily. Blood pressure today 112/64. He is on lisinopril 30mg daily. A1c today 03/26/23 5.2%. 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 1. Little interest or pleasure in doing things: not at all 2. Feeling down, depressed, or hopeless: not at all 3. Trouble falling or staying asleep, or sleeping too much: not at all 4. Feeling tired or having little energy: not at all 5. Poor appetite or overeating: not at all 6. Feeling bad about yourself - or that you are a failure or have let yourself or your family down: not at all 7. Trouble concentrating on things, such as reading the newspaper or watching television: not at all 8. Moving or speaking so slowly that other people could have noticed. Or the opposite - being so fidgety or restless that you have been moving around a lot more than usual: not at all 9. Thoughts that you would be better off or of hurting yourself in some way: not at all Total score: 0 Source: Developed by Drs. Balwinder Otero, Marisa Arvizu, Sami Walker and colleagues, with an educational roxana from [employer]. Thrive Questionnaire Date Thrive assessed: 03/26/23 I am a: Patient What is your living situation today?: I have a steady place to live Within the past 12 months, did the food you bought not last and you didn't have the money to get more?: Never true Within the past 12 months, did you worry whether your food would run out before you got money to buy more?: Never true Do you have trouble paying for medicines?: No Do you have trouble getting transportation to medical appointments?: No Do you have trouble paying your heating and electricity bill?: No Do you have trouble taking care of your child, family member or friend?: No Do you have trouble with day-to-day activities such as bathing, preparing meals, shopping, managing finances, etc.?: No Are you currently unemployed and looking for a job?: No Are you interested in more education?: No THRIVE Score: 0 AUDIT C Alcohol Use Questionnaire (AUDIT-C) 1. How often do you have a drink containing alcohol?: Never 3. How often do you have six or more drinks on one occasion?: Never Total Score: 0 JOHN-7 AMB Questionnaire JOHN-7 Date JOHN - 7 assessed: 03/26/23 Feeling nervous, anxious, or on edge: 0 = Not at all Not being able to stop or control worryin = Not at all Worrying too much about different things: 0 = Not at all Trouble relaxin = Not at all Being so restless that it is hard to sit still: 0 = Not at all Becoming easily annoyed or irritable: 0 = Not at all Feeling afraid as if something awful might happen: 0 = Not at all Total JOHN-7 score (0-4 normal; 5-9 mild; 10-14 moderate; 15-21 severe): 0 Source: Developed by Drs. Balwinder Otero, Marisa Arvizu, Sami Walker and colleagues, with an educational roxana from [employer]. Review of Systems Const Denies chills, Denies fatigue, Denies fever(s), Denies headache(s) and Denies weakness ENT Denies dizziness and Denies headache(s) Card Denies chest pain, Denies lightheadedness, Denies dyspnea and Denies other (Palpitations) Resp Denies cough, Denies dyspnea, Denies wheezing and Denies other ( shortness of breath) Musc Denies numbness and Denies tingling Neuro Denies dizziness, Denies headache(s), Denies numbness, Denies tingling, Denies paresthesias and Denies weakness Psych Denies anxiety and Denies depression Endo Denies fatigue Aller/Immun Denies wheezing Physical exam (Primary Care) Vital Signs: Last Vital Signs Pulse 61 03/26/23 16:05 BP 112/64 03/26/23 16:05 Pulse Ox 97 03/26/23 16:05 Oxygen Delivery Method Room Air 03/26/23 16:05 BMI result Body Mass Index 32.2 Tobacco/Smoking Status: Tobacco use Status Tobacco use date assessed 03/26/23 03/26/23 16:08 Patient Tobacco Use Status Never used Tobacco 03/26/23 16:08 e-Cigarette/Vaping Use Never Used 03/26/23 16:08 PHQ-9: PHQ-9 Score PHQ-9: Total score 0 03/26/23 16:32 Thrive Assessment: Date of Thrive Assessment Date Thrive assessed 03/26/23 03/26/23 16:14 Const General: no acute distress and well developed Nutritional Appearance: well nourished Orientation/consciousness: patient oriented x3 HENMT Head: Yes normocephalic and Yes atraumatic Eyes General: appearance normal, both eyes and all related structures Pupils: Equal, round and reactive pupils present EOM: EOMs intact bilaterally Resp Effort & Inspection: normal respiratory effort Auscultation: clear to auscultation bilaterally Cardio Rate: regular rate Rhythm: regular rhythm Heart sounds: S1 normal heart sound present, S2 normal heart sound present, no gallops, no murmurs and no rubs Neuro General: patient oriented x3 and gait normal Cranial nerves: Yes Equal, round and reactive pupils present Psych Affect: normal affect Results AMB Hemoglobin A1c AMB Hemoglobin A1c 5.2 % Last Edit by Belgica Gray CMA on 03/26/23 16:42 Assessment and Plan Assessment & Plan (1) Hypertension: Code(s): I10 - Essential (primary) hypertension Plan: Blood?pressure?is?well?controlled.??Goal?is?less?than?140/90 Continue?current?medication (2) Hypercholesterolemia: Code(s): E78.00 - Pure hypercholesterolemia, unspecified Plan: Had?decreased?patient's?atorvastatin Lipids?remain?at?goal Continue?atorvastatin?10?mg?daily (3) Elevated fasting blood sugar: Code(s): R73.01 - Impaired fasting glucose Plan: Fasting?blood?sugar?elevated?at?last?lab?check?and?on?prior?lab?checks. A1c?has?been?in?normal?range Rechecking?this - A1c?today: 5.2% Work?at?diet?lower?in?sugars?and?starches Encouraged?exercise Continue?weight?loss Orders: Orders AMB Hemoglobin A1c Today Z13.9 - Encounter for screening, unspecified TSH reflex Free T4 Today Z00.00 - Encounter for general adult medical examination without abnormal findings UA and rflx microscopic Today Z00.00 - Encounter for general adult medical examination without abnormal findings Comprehensive [place]. Panel Fast Today Z00.00 - Encounter for general adult medical examination without abnormal findings Complete Blood Count Auto Diff Today Z00.00 - Encounter for general adult medical examination without abnormal findings Microalbumin, Random (w Creat) Today I10 - Essential (primary) hypertension Hemoglobin A1c Today R73.01 - Impaired fasting glucose Coding Level of Care Code Est Pt Level 3 (47193) Diagnoses Hypertension I10 Hypercholesterolemia E78.00 Elevated fasting blood sugar R73.01
== END 2023-03-26 17:00 ==
PROVIDERS: PCP Family Medicine; Visit Provider Family Medicine
DX: I10 Essential (primary) hypertension (principal); E78.00 Pure hypercholesterolemia, unspecified; R73.01 Impaired fasting glucose
CPT/HCPCS: 83036; 99213

== ENCOUNTER 2023-07-02 12:38 | Outpatient (AMB) | payer BC, SELFPAY ==
[2023-07-02 12:40] VITALS: BP 136/82; PULSE 99; TEMP 36.2; O2SAT 97; BMI 35.4
--- NOTE | 2023-07-02 12:40 | AM.OFFWIN_ITS ---
Intake Vital Signs 07/02/23 12:40 Height 5 ft 10 in Weight 247 lb BMI 35.4 BP 136/82 Blood Pressure Location Rt brachial Position Sitting Pulse 99 Pulse Source Pulse Oximeter Temp 97.2 F Temp Source Temporal Artery Scan Pulse Oximetry (%) 97 Oxygen Delivery Method Room Air Intake Visit Reasons: EST/chills bodyaches (lobby masked) Intake Note: pt is here today for chills and bodyaches started today Patient Tobacco Use Status: Never used Tobacco Allergies No Known Allergies Allergy (Verified 07/02/23 12:43) Do you need a note to return to daycare/school/sports/work: No HPI HPI Comments History of Present Illness Details Patient is a 48-year-old male in today for sick visit. He states that for past day he has experienced symptoms of sore throat, headache, cough. 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 Denies chest pain or shortness of breath, denies nausea vomiting or diarrhea. Has not tried any medication for relief. States he took an at home COVID test was negative feels he got a bad sample. 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 Oriented X3.? No acute distress.? Head: Normocephalic, Eyes: Pupils equal, round and reactive to light.? ENT: Pharynx erythema + cobblestone.?TM intact and pearly gaines. Neck: Normal inspection.? Neck supple.? CVS: Normal heart rate and rhythm.? Pulses normal.? Respiratory: No respiratory distress.? Breath sounds normal.? Neuro: Oriented X 3.? Assessment & Plan Assessment & Plan (1) Upper respiratory tract infection: Comment: Will call patient with URI swab results. Patient has been educated this is likely viral in nature, can use supportive measures for symptom relief. Patient can utilize Tylenol, Mucinex. Should make sure that he stays hydrated and rests. Code(s): J06.9 - Acute upper respiratory infection, unspecified Qualifiers: URI type: unspecified viral URI Qualified Code(s): J06.9 - Acute upper respiratory infection, unspecified Plan: Take your medications as prescribed. If you were prescribed antibiotics today, it is important that you take your medication to their entirety, do not skip any doses, do not finish them early. Follow-up with your primary care provider this week. Return to the emergency department with new or worsening symptoms. Such as fevers, chills, chest pain, shortness of breath, nausea, vomiting, dizziness, headache, vision changes, lethargy In case of emergency call 911 Orders: Orders SARS-CoV2/FLU/RSV Today J06.9 - Acute upper respiratory infection, unspecified Coding Level of Care Code Est Pt Level 3 (05123) Diagnoses Viral upper respiratory tract infection J06.9 URI type: unspecified viral URI Time Spent (min) 21
== END 2023-07-02 13:30 | disposition home or self-care (01) ==
PROVIDERS: PCP Family Medicine; Visit Provider Nurse Practitioner Primary Care
DX: J06.9 Acute upper respiratory infection, unspecified (principal)
CPT/HCPCS: 99213

== ENCOUNTER 2023-07-02 16:52 | Outpatient (REF) | payer BC, SELFPAY ==
[2023-07-02 17:54] LABS: Influenza A PCR NEGATIVE (Negative); Influenza B PCR NEGATIVE (Negative); Resp Syncy Virus RNA Qual PCR NEGATIVE (Negative); SARS COV2 PCR INHOUSE NEGATIVE (Negative)
== END 2023-07-02 16:53 | disposition home or self-care (01) ==
LOC: HO.HMGCLNP 16:52
PROVIDERS: Visit Provider Nurse Practitioner Primary Care
DX: J06.9 Acute upper respiratory infection, unspecified (principal)
CPT/HCPCS: 0241U

== ENCOUNTER 2023-07-08 08:08 | Outpatient (AMB) | payer BC, SELFPAY ==
[2023-07-08 08:13] VITALS: BP 118/74; PULSE 75; TEMP 36.5; O2SAT 97; BMI 35.2
--- NOTE | 2023-07-08 08:13 | MHC.OFFWIV ---
Intake Vital Signs 07/08/23 08:13 Height 5 ft 10 in Weight 245 lb BMI 35.2 BP 118/74 Blood Pressure Location Rt brachial Position Sitting Pulse 75 Pulse Source Pulse Oximeter Temp 97.7 F Temp Source Temporal Artery Scan Pulse Oximetry (%) 97 Oxygen Delivery Method Room Air Intake Visit Reasons: Congestion Patient Tobacco Use Status: Never used Tobacco Allergies No Known Allergies Allergy (Verified 07/08/23 08:15) Medication List - Last Reconciled 07/08/23 by ISMAEL Rosado- atorvastatin 10 mg PO BEDTIME 90 days lisinopril 30 mg (1.5 x 20 mg) PO DAILY HPI HPI Comments History of Present Illness Details Flu like sx last week, went to walk in Saturday - note reviewed. Viral swab negative. Has been self treating w/ OTC meds mucinex, APAP w/o relief since this time. Today he presents w/ severe sore throaty, dry mouth, ear congestion. Denies fever. 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 Current occupational exposures/hazards: No Cognitive needs: No Hearing needs: No Vision needs: No Review of Systems Const All systems reviewed & are unremarkable except as noted in HPI and below Physical Exam Const Other: Awake alert NAD Sclera and conjunctiva clear bilat Nares patent, turbinates pale and edematous, no sinus tenderness with palpation bilat TM intact erythematous and bulging bilat right greater than left MMM, pharynx diffuse exudative pharyngitis, managing secretions positive AC adenopathy bilat RRR LS CTAB Assessment & Plan Assessment & Plan (1) Strep pharyngitis: Code(s): J02.0 - Streptococcal pharyngitis Plan: . Plan . Medications: New amoxicillin-pot clavulanate 875-125 mg 1 tab PO BID 7 days 14 tabs 0RF Patient Instructions: Good hand hygiene and respiratory etiquette can reduce the spread of all types of group A strep infection. Hand hygiene is especially important after coughing and sneezing and before preparing foods or eating. Good respiratory etiquette involves covering your cough or sneeze. Do not share food or drinks. Treating an infected person with an antibiotic for 12 hours or longer limits their ability to transmit the bacteria. Thus, people with group A strep pharyngitis should stay home from work, school, or daycare until: They are afebrile AND At least 12?24 hours after starting appropriate antibiotic therapy I also recommend changing toothbrush and washing bed linen in hot water 24 hours after starting antibiotics Coding Level of Care Code Est Pt Level 3 (14236) Diagnoses Strep pharyngitis J02.0
== END 2023-07-08 08:23 | disposition home or self-care (01) ==
PROVIDERS: PCP Family Medicine; Visit Provider Nurse Practitioner Family
DX: J02.0 Streptococcal pharyngitis (principal)
CPT/HCPCS: 99213

== ENCOUNTER 2023-07-22 08:05 | Outpatient (AMB) | payer BC, SELFPAY ==
--- NOTE | 2023-07-22 08:17 | AM.OFFWIN_ITS ---
Intake Vital Signs 07/22/23 08:20 Height 5 ft 10 in Weight 246 lb 4 oz BMI 35.3 BP 121/68 Blood Pressure Location Rt radial Position Sitting Respiration 14 Pulse 64 Pulse Source Pulse Oximeter Temp 96.4 F L Temp Source Temporal Artery Scan Pulse Oximetry (%) 96 Oxygen Delivery Method Room Air Intake Visit Reasons: Congestion, Cough Intake Note: Cough and congestion. Had strep throat two weeks ago that is resolved. Now both ears are clogged and cant hear out of left side. Patient Tobacco Use Status: Never used Tobacco Allergies No Known Allergies Allergy (Verified 07/22/23 08:28) Medication List - Last Reconciled 07/22/23 by Ban Mann, PRODUCT TRAINER-BC atorvastatin 10 mg PO BEDTIME 90 days lisinopril 30 mg (1.5 x 20 mg) PO DAILY Do you need a note to return to daycare/school/sports/work: No HPI HPI Comments History of Present Illness Details Here today with complaints of ear congestion and cough. He was seen in the walk-in clinic 07/08/2023 and diagnosed with strep pharyngitis. He has completed his course of Augmentin. His strep throat symptoms resolved. However 1-2 days ago developed a blocked sensation in bilat ears, left worse than right along with an upper airway cough with mild chest congestion. Denies any fever, chills, hemoptysis. 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 Current occupational exposures/hazards: No Cognitive needs: No Hearing needs: No Vision needs: No Review of Systems Const All systems reviewed & are unremarkable except as noted in HPI and below Physical Exam Vital Signs: Last Vital Signs Temp 96.4 F L 07/22/23 08:20 Pulse 64 07/22/23 08:20 Resp 14 07/22/23 08:20 BP 121/68 07/22/23 08:20 Pulse Ox 96 07/22/23 08:20 Oxygen Delivery Method Room Air 07/22/23 08:20 BMI result Body Mass Index 35.3 Const Other: Awake alert NAD Sclera and conjunctiva clear bilat Nares patent, turbinates pale and edematous, no sinus tenderness with palpation bilat TM intact erythematous and bulging bilat Left greater than right MMM, pharynx WNL RRR LS CTAB Assessment & Plan Assessment & Plan (1) Eustachian tube dysfunction: Code(s): H69.90 - Unspecified Eustachian tube disorder, unspecified ear Qualifiers: Laterality: bilateral Qualified Code(s): H69.93 - Unspecified Eustachian tube disorder, bilateral Plan: . (2) Post-nasal drip: Code(s): R09.82 - Postnasal drip Plan: . Plan Total time spent caring for the patient today was 30 minutes. This includes time spent before the visit reviewing the chart, time spent during the visit, and time spent after the visit on documentation This note is constructed using voice recognition software. While every effort has been made to ensure accuracy in pastoral worker, still errors may have been included Sometimes, these errors may affect the content or meaning of the given sentence . Medications: New prednisone 50 mg PO DAILY 5 days 5 tabs 0RF fluticasone propionate 50 mcg/actuation administer into each nostril 1 spray intranasal BID 16 grams 3RF Patient Instructions: Advised today that the cough is likely related to postnasal drip. We will start him on Flonase along with an oral steroid. Educated about the chronicity of eustachian tube disorder. Encouraged self insufflation. If symptoms continue past 3 months, if he develops a fever or worsening of symptoms advised to return to the office. Coding Level of Care Code Est Pt Level 4 (52049) Diagnoses Dysfunction of both eustachian tubes H69.93 Laterality: bilateral Post-nasal drip R09.82
[2023-07-22 08:20] VITALS: BP 121/68; PULSE 64; RESP 14; TEMP 35.8; O2SAT 96; BMI 35.3
== END 2023-07-22 08:31 | disposition home or self-care (01) ==
PROVIDERS: PCP Family Medicine; Visit Provider Nurse Practitioner Family
DX: H69.93 Unspecified Eustachian tube disorder, bilateral (principal); R09.82 Postnasal drip
CPT/HCPCS: 99214

== ENCOUNTER 2023-07-30 10:47 | Outpatient (AMB) | payer BC, SELFPAY ==
[2023-07-30 10:55] VITALS: BP 126/60; PULSE 77; TEMP 36.8; O2SAT 96; BMI 35.0
--- NOTE | 2023-07-30 10:55 | AM.OFFWIN_ITS ---
Intake Vital Signs 07/30/23 10:55 Height 5 ft 10 in Weight 244 lb BMI 35.0 BP 126/60 Blood Pressure Location Lt brachial Position Sitting Pulse 77 Pulse Source Pulse Oximeter Temp 98.3 F Temp Source Oral Pulse Oximetry (%) 96 Oxygen Delivery Method Room Air Intake Visit Reasons: EP sore throat, white spots Intake Note: pt is here today for sore throat and white spots started 3 days ago Patient Tobacco Use Status: Never used Tobacco Allergies No Known Allergies Allergy (Verified 07/30/23 10:58) Do you need a note to return to daycare/school/sports/work: No HPI HPI Comments History of Present Illness Details Patient is a 48-year-old male complaining of chronic sore throat with white spots on his tonsils that reappeared 3 days ago. He also has pain with swallowing but able to handle his secretions, a dry cough but denies fevers. He states on July 02, he started feeling like he had a viral syndrome and thought it was COVID we tested but he was negative. On July 07 he was evaluated for a sore throat with white spots he could see and told he had strep and was placed on amoxicillin for 10 days which he took in full. He states he never really felt better and his head congestion just kind of lingered. He was evaluated again on July 21 because his ears were clogged and had postnasal drip and a cough, he was given steroids. But he states his symptoms never fully resolved. 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 Current occupational exposures/hazards: No Cognitive needs: No Hearing needs: No Vision needs: No Review of Systems Const All systems reviewed & are unremarkable except as noted in HPI and below Physical Exam Vital Signs: Last Vital Signs Temp 98.3 F 07/30/23 10:55 Pulse 77 07/30/23 10:55 BP 126/60 07/30/23 10:55 Pulse Ox 96 07/30/23 10:55 Oxygen Delivery Method Room Air 07/30/23 10:55 BMI result Body Mass Index 35.0 Const General: cooperative, healthy appearing, comfortable and no acute distress Orientation/consciousness: patient oriented x3 Limitations: no limitations HEENT Head: Yes normal to inspection Ears: hearing grossly normal bilaterally, external ears normal and TM's normal bilaterally General nose exam: Normal external nose present and Normal nares present Face and sinus: Yes normal facial exam and Yes sinuses nontender Mouth: Normal oral and palatal mucosa present and moist mucous membranes Throat: Yes uvula midline, Yes abnormal tonsil (white exudate and erythematous bilaterally) and Yes posterior oropharynx abnormal (Erythematous) Eyes General: appearance normal, both eyes and all related structures Neck Neck: Yes normal visual inspection Resp Effort & Inspection: normal respiratory effort, able to speak in complete sentences, Actively coughing, no respiratory distress, not tachypneic, no tripod positioning and no use of accessory muscles Skin General skin exam: no rashes or lesions noted Neuro General: patient oriented x3 Extrem General: Yes normal to inspection and Yes no clubbing, cyanosis or edema Results AMB Rapid Strep AMB Rapid Strep Negative Last Edit by ZACK Calderon on 07/30/23 11:4 0 Assessment & Plan Assessment & Plan (1) Chronic sore throat: Code(s): J31.2 - Chronic pharyngitis Plan: Rapid Strep test was negative, sent throat gonorrhea test. Centor criteria is only 1, a 5-10% chance of having strep pharyngitis. Recommended warm salt water rinses as well as hot tea with honey, I treatment plan was we have the gonorrhea test results Plan see above Orders: Orders AMB Rapid Strep Screen Today Z13.9 - Encounter for screening, unspecified CT NG by PCR Today J31.2 - Chronic pharyngitis Coding Level of Care Code Est Pt Level 3 (35571) Diagnoses Chronic sore throat J31.2
== END 2023-07-30 12:04 | disposition home or self-care (01) ==
PROVIDERS: PCP Family Medicine; Visit Provider Physician Assistant
DX: J31.2 Chronic pharyngitis (principal)
CPT/HCPCS: 87880; 99213

== ENCOUNTER 2023-07-30 11:30 | Outpatient (REF) | payer BC, SELFPAY | END 2023-07-30 11:31 | disposition home or self-care (01) | LOC: HO.LAB 11:30 | PROVIDERS: Visit Provider Physician Assistant | DX: Z13.89 Encounter for screening for other disorder (principal) ==

== ENCOUNTER 2023-08-07 15:19 | Outpatient (AMB) | payer BC, SELFPAY ==
--- NOTE | 2023-08-07 15:41 | MHC.PC.OV ---
Vital Signs 08/07/23 15:43 Height 5 ft 10 in Weight 243 lb 4 oz BMI 34.9 BP 118/66 Blood Pressure Location Rt brachial Position Sitting Pulse 70 Pulse Source Pulse Oximeter Pulse Oximetry (%) 95 Oxygen Delivery Method Room Air Intake Visit Reasons: CPE Intake Note: Patient is here for his physical today. Patient is still having allergy/post nasal drip symptoms after being seen in the walk in 3 times. 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 Balwinder Otero, Marisa Arvizu, Sami Walker and colleagues, with an educational roxana from [employer]. Physical exam (Primary Care) Vital Signs: Last Vital Signs Pulse 70 08/07/23 15:43 BP 118/66 08/07/23 15:43 Pulse Ox 95 08/07/23 15:43 Oxygen Delivery Method Room Air 08/07/23 15:43 BMI result Body Mass Index 34.9 Tobacco/Smoking Status: Tobacco use Status Tobacco use date assessed 08/07/23 08/07/23 15:46 Patient Tobacco Use Status Never used Tobacco 08/07/23 15:41 e-Cigarette/Vaping Use Never Used 08/07/23 15:41 Thrive Assessment: Date of Thrive Assessment Date Thrive assessed 03/26/23 08/07/23 15:41 Assessment and Plan Assessment & Plan (1) Adult general medical exam: Code(s): Z00.00 - Encounter for general adult medical examination without abnormal findings Plan: 48-year-old?male?presents?for?complete?physical?exam Encouraged?healthy?diet?with?active?lifestyle?and?plenty?of?exercise (2) Rhinitis: Code(s): J31.0 - Chronic rhinitis Plan: Continue?nasal?steroid Trial?azelastine Can?also?try?a?nasal?steroid (3) Left otitis media: Code(s): H66.92 - Otitis media, unspecified, left ear Plan: Likely?secondary?to?nasal?congestion Will?send?script?for?Augmentin (4) Elevated fasting blood sugar: Code(s): R73.01 - Impaired fasting glucose Plan: Prior?A1c?was?okay Will?continue?to?monitor (5) Hypertension: Code(s): I10 - Essential (primary) hypertension Plan: Blood?pressure?well?controlled.??Goal?is?less?than?140/90 Continue?current?medication (6) Hypercholesterolemia: Code(s): E78.00 - Pure hypercholesterolemia, unspecified Plan: Lipids?are?controlled Continue?atorvastatin Recheck?lipids?with?next?blood?draw (7) Screening for colon cancer: Code(s): Z12.11 - Encounter for screening for malignant neoplasm of colon Plan: Colonoscopy?in?03/09/2023?with?polyps Recommended?5?year?follow-up;?2028 (8) Screening for prostate cancer: Code(s): Z12.5 - Encounter for screening for malignant neoplasm of prostate Plan: Check?PSA Orders: Orders Prostate Specific Antigen Scr Today Z12.5 - Encounter for screening for malignant neoplasm of prostate Lipid Panel Today E78.00 - Pure hypercholesterolemia, unspecified, Z00.00 - Encounter for general adult medical examination without abnormal findings Prostate Specific Antigen Scr 1 Day Z12.5 - Encounter for screening for malignant neoplasm of prostate Microalbumin, Random (w Creat) Today I10 - Essential (primary) hypertension Comprehensive [place]. Panel Fast Today E78.00 - Pure hypercholesterolemia, unspecified, Z00.00 - Encounter for general adult medical examination without abnormal findings Medications: New amoxicillin-pot clavulanate 500-125 mg (Augmentin) 1 tab PO Q12H 10 days 20 tabs 0RF azelastine administer into each nostril 1 spray intranasal BID 30 days 30 mL 2RF Coding Level of Care Code New Pt Prev Care 40-64y(73209) Diagnoses Adult general medical exam Z00.00 Rhinitis J31.0 Left otitis media H66.92 Elevated fasting blood sugar R73.01 Hypertension I10 Hypercholesterolemia E78.00 Screening for colon cancer Z12.11 Screening for prostate cancer Z12.5
[2023-08-07 15:43] VITALS: BP 118/66; PULSE 70; O2SAT 95; BMI 34.9
== END 2023-08-07 16:21 | disposition home or self-care (01) ==
PROVIDERS: PCP Family Medicine; Visit Provider Family Medicine
DX: Z00.00 Encounter for general adult medical examination without abnormal findings (principal); J31.0 Chronic rhinitis; H66.92 Otitis media, unspecified, left ear; R73.01 Impaired fasting glucose; I10 Essential (primary) hypertension; E78.00 Pure hypercholesterolemia, unspecified; Z12.11 Encounter for screening for malignant neoplasm of colon; Z12.5 Encounter for screening for malignant neoplasm of prostate
CPT/HCPCS: 99396

== ENCOUNTER 2023-12-03 08:18 | Outpatient (REF) | payer BC, SELFPAY ==
[2023-12-03 11:11] LABS: MANUAL DIFF FLAG NO
[2023-12-03 11:27] LABS: Basophils Percent Auto 0.5 % (0-2); Eosinophils Absolute Auto 0.2 X10*3/uL (0.0-0.4); Hematocrit 46.8 % (42.0-52.0); Hemoglobin 15.8 g/dl (14.0-18.0); Imm Gran Abs Auto 0.02 X10*3/uL (0.00-0.03); Imm Gran Pct Auto 0.2 % (0.0-0.4); Lymphocytes Absolute Auto 2.7 X10*3/uL (1.2-4.9); Lymphocytes Percent Auto 32.2 % (20-40); Mean Corpuscular HGB Conc 33.8 g/dl (31.0-36.0); Mean Corpuscular Hemoglobin 29.9 pg (27.0-33.0); Mean Corpuscular Volume 88.6 fL (80.0-98.0); Mean Platelet Volume 11.1 fL (9.4-12.4); Monocytes Absolute Auto 0.6 X10*3/uL (0.1-1.2); Monocytes Percent Auto 7.2 % (2-11); Neutrophils Absolute Auto 4.9 x10*3/uL (2.0-8.3); Neutrophils Percent Auto 57.9 % (45-73); Platelet Count 252 X10*3/uL (160-400); Red Blood Count 5.28 X10*6/uL (4.60-5.80); White Blood Count 8.4 X10*3/uL (4.8-10.8)
[2023-12-03 11:45] LABS: Appearance Urine Turbid; Color Urine Dark Yellow; Glucose Urine UA Negative (Negative); Leukocyte Esterase Urine Negative (Negative); Nitrite Urine Negative (Negative); PH 5.5 (5.0-9.0); Specific Gravity - Urine >= 1.030 (1.005-1.025); UMIC TRIGGER UA YES; Urine Blood Negative (Negative); Urine Ketones Trace mg/dL (Negative); Urine Protein 30 (1+) mg/dL (Neg-Trace)
[2023-12-03 11:52] LABS: Estimated Average Glucose 105 mg/dL; Hemoglobin A1C 138.0177 umol/L; Hemoglobin A1c % 5.3 % (<6.0)
[2023-12-03 11:52] LABS: Bacteria Urine None Seen (None Seen); Hyaline Casts Urine 0-2 /LPF (0-2); RBC Urine 0-2 /HPF (0-2); Squamous Epithelial Cell Urine 0-2 /HPF (0-2); WBC Urine 0-5 /HPF (0-5)
[2023-12-03 12:07] LABS: Prostate Specific Antigen Scr 0.83 ng/mL (<0.05-4.0)
[2023-12-03 12:16] LABS: Microalbum/Creatinine Ratio Ur 37.2 ug/mg cr (<30)
[2023-12-03 12:17] LABS: Alanine Aminotransferase 23 U/L (0-40); Albumin Level 4.2 g/dL (3.5-5.0); Alkaline Phosphatase 76 U/L (39-117); Anion Gap 12 (12-20); Aspartate Amino Transferase 18 U/L (5-37); Bilirubin Total 1.6 mg/dL (0.0-1.0); Blood Urea Nitrogen 12 mg/dL (9-16); Calcium 9.2 mg/dL (8.4-10.2); Carbon Dioxide 26 mmol/L (22-29); Chloride 109 mmol/L (96-108); Cholesterol 154 mg/dL (<200); Estimated Glomerular Filt Rate > 60; Glucose Fasting 111 mg/dL (60-99); HDL Cholesterol 48 mg/dL (>40); LDL Cholesterol Calculated 86 mg/dL (<100); Potassium 3.8 mmol/L (3.3-5.1); Sodium 143 mmol/L (135-145); Total Protein 6.8 g/dL (6.5-8.0); Triglycerides 100 mg/dL (<150)
[2023-12-03 12:18] LABS: TSH reflex Free T4 2.09 uIU/mL (0.32-4.0)
== END 2023-12-03 08:19 | disposition home or self-care (01) ==
LOC: HO.WFDLDS 08:18
PROVIDERS: Visit Provider Family Medicine
DX: Z00.00 Encounter for general adult medical examination without abnormal findings (principal); E78.00 Pure hypercholesterolemia, unspecified; I10 Essential (primary) hypertension; R73.01 Impaired fasting glucose; Z12.5 Encounter for screening for malignant neoplasm of prostate
CPT/HCPCS: 36415; 80053; 80061; 81001; 82043; 82570; 83036; 84153; 84443; 85025

== ENCOUNTER 2023-12-11 15:38 | Outpatient (AMB) | payer BC, SELFPAY ==
--- NOTE | 2023-12-11 15:42 | A.OFFPC_ITS ---
Vital Signs 12/11/23 15:46 Height 5 ft 10 in Weight 248 lb BMI 35.6 BP 124/72 Blood Pressure Location Rt brachial Position Sitting Respiration 16 Pulse 72 Pulse Source Pulse Oximeter Temp 96.8 F Temp Source Temporal Artery Scan Pulse Oximetry (%) 95 Oxygen Delivery Method Room Air Intake Visit Reasons: FOLLOW UP BLOOD WORK Intake Note: F/U BLOODWORK Allergies No Known Allergies Allergy (Verified 12/11/23 15:43) Medication List - Last Reconciled 12/11/23 by Robert Olson MD atorvastatin 10 mg PO BEDTIME 90 days azelastine 1 spray intranasal BID 30 days fluticasone propionate 50 mcg/actuation 1 spray intranasal BID lisinopril 30 mg (1.5 x 20 mg) PO DAILY Tobacco use date assessed: 08/07/23 Dental Screening Dental Screen Date: 03/26/23 HPI FOLLOW UP BLOOD WORK HPI Details 48 y/o male presents to f/u hypertension , HLD, screening for prostate cancer. Blood pressure today 124/72, 72p. He is on lisinopril 30mg daily. Labs drawn 12/03/23. Reviewed labs with pt. Triglycerides 100. TC 154. LDL 86. HDL 48. He is on artovastatin 10mg. PSA 0.83. HPI Comments History of Present Illness Details Documentation assistance for Robert Olson MD, was provided by Ravi Gaming, Acoustical Tile Patternmaker on 12/11/2023 at 3:53 PM EST. I, Dr. Olson, have read, observed, and verified documentation. 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 1. Little interest or pleasure in doing things: not at all 2. Feeling down, depressed, or hopeless: not at all 3. Trouble falling or staying asleep, or sleeping too much: not at all 4. Feeling tired or having little energy: not at all 5. Poor appetite or overeating: not at all 6. Feeling bad about yourself - or that you are a failure or have let yourself or your family down: not at all 7. Trouble concentrating on things, such as reading the newspaper or watching television: not at all 8. Moving or speaking so slowly that other people could have noticed. Or the opposite - being so fidgety or restless that you have been moving around a lot more than usual: not at all 9. Thoughts that you would be better off or of hurting yourself in some way: not at all Total score: 0 Source: Developed by Drs. Balwinder Otero, Marisa Arvizu, Sami Walker and colleagues, with an educational roxana from [employer]. Thrive Questionnaire Date Thrive assessed: 12/08/23 I am a: Patient What is your living situation today?: I have a steady place to live Within the past 12 months, did the food you bought not last and you didn't have the money to get more?: Never true Within the past 12 months, did you worry whether your food would run out before you got money to buy more?: Never true Do you have trouble paying for medicines?: No Do you have trouble getting transportation to medical appointments?: No Do you have trouble paying your heating and electricity bill?: No Do you have trouble taking care of your child, family member or friend?: No Do you have trouble with day-to-day activities such as bathing, preparing meals, shopping, managing finances, etc.?: No Are you currently unemployed and looking for a job?: No Are you interested in more education?: No Please select the resources that you would like help with: None Currently or been in a relationship where the following occur: No concerns reported THRIVE Score: 0 AUDIT C Alcohol Use Questionnaire (AUDIT-C) 1. How often do you have a drink containing alcohol?: Never Total Score: 0 JOHN-7 AMB Questionnaire JOHN-7 Date JOHN - 7 assessed: 03/26/23 Feeling nervous, anxious, or on edge: 0 = Not at all Not being able to stop or control worryin = Not at all Worrying too much about different things: 0 = Not at all Trouble relaxin = Not at all Being so restless that it is hard to sit still: 0 = Not at all Becoming easily annoyed or irritable: 0 = Not at all Feeling afraid as if something awful might happen: 0 = Not at all Total JOHN-7 score (0-4 normal; 5-9 mild; 10-14 moderate; 15-21 severe): 0 Source: Developed by Drs. Balwinder Otero, Marisa Arvizu, Sami Walker and colleagues, with an educational roxana from [employer]. Review of Systems Const Denies chills, Denies fatigue, Denies fever(s), Denies headache(s) and Denies weakness ENT Denies dizziness and Denies headache(s) Card Denies chest pain, Denies lightheadedness, Denies dyspnea and Denies other (Palpitations) Resp Denies cough, Denies dyspnea, Denies wheezing and Denies other ( shortness of breath) Musc Denies numbness and Denies tingling Neuro Denies dizziness, Denies headache(s), Denies numbness, Denies tingling, Denies paresthesias and Denies weakness Psych Denies anxiety and Denies depression Endo Denies fatigue Aller/Immun Denies wheezing Physical exam (Primary Care) Vital Signs: Last Vital Signs Temp 96.8 F 12/11/23 15:46 Pulse 72 12/11/23 15:46 Resp 16 12/11/23 15:46 BP 124/72 12/11/23 15:46 Pulse Ox 95 12/11/23 15:46 Oxygen Delivery Method Room Air 12/11/23 15:46 BMI result Body Mass Index 35.6 Tobacco/Smoking Status: Tobacco use Status Tobacco use date assessed 08/07/23 12/11/23 15:46 Patient Tobacco Use Status Never used Tobacco 12/11/23 15:46 e-Cigarette/Vaping Use Never Used 12/11/23 15:46 PHQ-9: PHQ-9 Score PHQ-9: Total score 0 12/11/23 15:53 Thrive Assessment: Date of Thrive Assessment Date Thrive assessed 12/08/23 12/11/23 15:46 Currently or been in a relationship where the following occur: No concerns reported Const General: no acute distress and well developed Nutritional Appearance: well nourished Orientation/consciousness: patient oriented x3 HENMT Head: Yes normocephalic and Yes atraumatic Eyes General: appearance normal, both eyes and all related structures Pupils: Equal, round and reactive pupils present EOM: EOMs intact bilaterally Resp Effort & Inspection: normal respiratory effort Auscultation: clear to auscultation bilaterally Cardio Rate: regular rate Rhythm: regular rhythm Heart sounds: S1 normal heart sound present, S2 normal heart sound present, no gallops, no murmurs and no rubs Neuro General: patient oriented x3 and gait normal Cranial nerves: Yes Equal, round and reactive pupils present Psych Affect: normal affect Coding Level of Care Code Est Pt Level 4 (98061) Diagnoses Hypertension I10 Hypercholesterolemia E78.00 Screening for prostate cancer Z12.5 Microalbuminuria R80.9 Elevated fasting blood sugar R73.01 Assessment & Plan Assessment & Plan (1) Hypertension: Code(s): I10 - Essential (primary) hypertension Category: Medical Plan: Blood?pressure?appears?well?controlled.??Goal?is?less?than?140/90 Continue?current?medication (2) Hypercholesterolemia: Code(s): E78.00 - Pure hypercholesterolemia, unspecified Category: Medical Plan: Lipids?are?well?controlled?on?atorvastatin Continue?current?med (3) Screening for prostate cancer: Code(s): Z12.5 - Encounter for screening for malignant neoplasm of prostate Category: Medical Plan: PSA?is?within?normal?limits Will?continue?annual?screening (4) Microalbuminuria: Code(s): R80.9 - Proteinuria, unspecified Category: Medical Plan: Mildly?elevated?microalbumin?levels Patient?does?have?mildly?elevated?fasting?blood?sugar?and?I?encouraged?him?to?wo rk?on?this-see?above Encouraged?good?hydration?and?weight?loss Will?follow (5) Elevated fasting blood sugar: Code(s): R73.01 - Impaired fasting glucose Category: Medical Plan: Elevated?fasting?blood?sugar?and?A1c?is?still?in?normal?range Encouraged?a?diet?lower?in?sugars?and?starches Encouraged?exercise?and?weight?loss Orders: Orders Microalbumin, Random (w Creat) Today I10 - Essential (primary) hypertension, R80.9 - Proteinuria, unspecified Comprehensive [place]. Panel Fast Today I10 - Essential (primary) hypertension, Z00.00 - Encounter for general adult medical examination without abnormal findin gs Hemoglobin A1c Today R73.01 - Impaired fasting glucose
[2023-12-11 15:46] VITALS: BP 124/72; PULSE 72; RESP 16; TEMP 36; O2SAT 95; BMI 35.6
== END 2023-12-11 16:14 | disposition home or self-care (01) ==
PROVIDERS: PCP Family Medicine; Visit Provider Family Medicine
DX: I10 Essential (primary) hypertension (principal); E78.00 Pure hypercholesterolemia, unspecified; Z12.5 Encounter for screening for malignant neoplasm of prostate; R80.9 Proteinuria, unspecified; R73.01 Impaired fasting glucose

== ENCOUNTER → 2023-12-11 15:38 | Outpatient (BNVA) | payer BC, SELFPAY | PROVIDERS: PCP Family Medicine; Visit Provider Family Medicine ==

== ENCOUNTER 2024-05-05 08:16 | Outpatient (REF) | payer BC, SELFPAY ==
[2024-05-05 11:28] LABS: Appearance Urine Clear; Color Urine Dark Yellow; Glucose Urine UA Negative (Negative); Leukocyte Esterase Urine Negative (Negative); Nitrite Urine Negative (Negative); PH 5.5 (5.0-9.0); Specific Gravity - Urine 1.025 (1.005-1.025); UMIC TRIGGER UA YES; Urine Blood Negative (Negative); Urine Ketones Trace mg/dL (Negative); Urine Protein 30 (1+) mg/dL (Neg-Trace)
[2024-05-05 11:32] LABS: Bacteria Urine None Seen (None Seen); Hyaline Casts Urine 0-2 /LPF (0-2); RBC Urine 0-2 /HPF (0-2); Squamous Epithelial Cell Urine 0-2 /HPF (0-2); WBC Urine 0-5 /HPF (0-5)
[2024-05-05 11:37] LABS: Estimated Average Glucose 108 mg/dL; Hemoglobin A1c % 5.4 % (<6.0)
[2024-05-05 11:55] LABS: Alanine Aminotransferase 24 U/L (0-40); Alkaline Phosphatase 76 U/L (39-117); Anion Gap 12 (12-20); Aspartate Amino Transferase 18 U/L (5-37); Bilirubin Total 1.3 mg/dL (0.0-1.0); Blood Urea Nitrogen 10 mg/dL (9-16); Calcium 8.7 mg/dL (8.4-10.2); Carbon Dioxide 25 mmol/L (22-29); Chloride 109 mmol/L (96-108); Estimated Glomerular Filt Rate > 60; Glucose Fasting 103 mg/dL (60-99); Sodium 142 mmol/L (135-145); Total Protein 6.9 g/dL (6.5-8.0)
[2024-05-05 11:59] LABS: Prostate Specific Antigen Scr 0.92 ng/mL (<0.05-4.0)
[2024-05-05 12:05] LABS: Creatinine Urine 287.88 mg/dL; Microalbum/Creatinine Ratio Ur 29.5 ug/mg cr (<30)
== END 2024-05-05 08:17 | disposition home or self-care (01) ==
LOC: HO.WFDLDS 08:16
PROVIDERS: Visit Provider Family Medicine
DX: Z00.00 Encounter for general adult medical examination without abnormal findings (principal); Z12.5 Encounter for screening for malignant neoplasm of prostate; I10 Essential (primary) hypertension; E78.00 Pure hypercholesterolemia, unspecified; R73.01 Impaired fasting glucose
CPT/HCPCS: 36415; 80053; 81001; 82043; 82570; 83036; 84153

== ENCOUNTER 2024-05-12 08:33 | Outpatient (AMB) | payer BC, SELFPAY ==
--- NOTE | 2024-05-12 08:45 | MHC.PC.OV ---
Vital Signs 05/12/24 08:55 Height 5 ft 10 in Weight 256 lb BMI 36.7 BP 110/80 Blood Pressure Location Lt brachial Position Sitting Respiration 4 L Pulse 64 Pulse Source Pulse Oximeter Temp 98.5 F Temp Source Oral Pulse Oximetry (%) 95 Oxygen Delivery Method Room Air Intake Visit Reasons: Follow Up-Meds. 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 Review HPI Details 49 y/o male presents today to f/u chronic conditions. A1c 5.4%. Blood pressure today 110/80, 64p. He is on lisinopril 20mg a day. Labs drawn 05/05/24. Reviewed labs with pt. A1c 5.4%. Microalb/Creat Ratio 29.5. 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 1. Little interest or pleasure in doing things: not at all 2. Feeling down, depressed, or hopeless: not at all 3. Trouble falling or staying asleep, or sleeping too much: not at all 4. Feeling tired or having little energy: not at all 5. Poor appetite or overeating: not at all 6. Feeling bad about yourself - or that you are a failure or have let yourself or your family down: not at all 7. Trouble concentrating on things, such as reading the newspaper or watching television: not at all 8. Moving or speaking so slowly that other people could have noticed. Or the opposite - being so fidgety or restless that you have been moving around a lot more than usual: not at all 9. Thoughts that you would be better off or of hurting yourself in some way: not at all Total score: 0 Source: Developed by Drs. Balwinder Otero, Marisa Arvizu, Sami Walker and colleagues, with an educational roxana from [employer]. Thrive Questionnaire Date Thrive assessed: 05/06/24 I am a: Patient What is your living situation today?: I have a steady place to live Within the past 12 months, did the food you bought not last and you didn't have the money to get more?: Never true Within the past 12 months, did you worry whether your food would run out before you got money to buy more?: Never true Do you have trouble paying for medicines?: No Do you have trouble getting transportation to medical appointments?: No Do you have trouble paying your heating and electricity bill?: No Do you have trouble taking care of your child, family member or friend?: No Do you have trouble with day-to-day activities such as bathing, preparing meals, shopping, managing finances, etc.?: No Are you currently unemployed and looking for a job?: No Are you interested in more education?: No Please select the resources that you would like help with: None Currently or been in a relationship where the following occur: No concerns reported THRIVE Score: 0 AUDIT C Alcohol Use Questionnaire (AUDIT-C) 1. How often do you have a drink containing alcohol?: Never Total Score: 0 JOHN-7 AMB Questionnaire JOHN-7 Date JOHN - 7 assessed: 03/26/23 Feeling nervous, anxious, or on edge: 0 = Not at all Not being able to stop or control worryin = Not at all Worrying too much about different things: 0 = Not at all Trouble relaxin = Not at all Being so restless that it is hard to sit still: 0 = Not at all Becoming easily annoyed or irritable: 0 = Not at all Feeling afraid as if something awful might happen: 0 = Not at all Total JOHN-7 score (0-4 normal; 5-9 mild; 10-14 moderate; 15-21 severe): 0 Source: Developed by Drs. Balwinder Otero, Marisa Arvizu, Sami Walker and colleagues, with an educational roxana from [employer]. Review of Systems Const Denies chills, Denies fatigue, Denies fever(s), Denies headache(s) and Denies weakness ENT Denies dizziness and Denies headache(s) Card Denies dyspnea Resp Denies cough, Denies dyspnea, Denies wheezing and Denies other (shortness of breath) Musc Denies numbness and Denies tingling Neuro Denies dizziness, Denies headache(s), Denies numbness, Denies tingling and Denies weakness Psych Denies anxiety and Denies depression Endo Denies fatigue Aller/Immun Denies wheezing Physical exam (Primary Care) Tobacco/Smoking Status: Tobacco use Status Tobacco use date assessed 08/07/23 05/12/24 08:45 Patient Tobacco Use Status Never used Tobacco 05/12/24 08:45 e-Cigarette/Vaping Use Never Used 05/12/24 08:45 PHQ-9: PHQ-9 Score PHQ-9: Total score 0 05/12/24 08:57 Thrive Assessment: Date of Thrive Assessment Date Thrive assessed 05/06/24 05/12/24 08:45 Currently or been in a relationship where the following occur: No concerns reported Const General: well developed; No acute distress Nutritional Appearance: well nourished and obese Orientation/consciousness: patient oriented x3 [facility] [place] Head: Yes normocephalic and Yes atraumatic Eyes General: appearance normal, both eyes and all related structures Pupils: Equal, round and reactive pupils present EOM: EOMs intact bilaterally Resp Effort & Inspection: normal respiratory effort Neuro General: patient oriented x3 and gait normal Cranial nerves: Yes Equal, round and reactive pupils present Psych Affect: normal affect Coding Level of Care Code Est Pt Level 3 (95360) Diagnoses Hypertension I10 Microalbuminuria R80.9 Elevated fasting blood sugar R73.01 Assessment & Plan Assessment & Plan (1) Hypertension: Code(s): I10 - Essential (primary) hypertension Category: Medical Plan: Blood?pressure?is?controlled.??Goal?is?less?than?140/90 He?has?been?taking?lisinopril?20?mg?daily?and?I?have?updated?his?med?list?to?reflect?this. Continue?lisinopril?20?mg?daily. (2) Microalbuminuria: Code(s): R80.9 - Proteinuria, unspecified Category: Medical Plan: As?above,?patient?is?on?lisinopril Microalbumin?creatinine?ratio?less?than?30 Will?continue?to?monitor (3) Elevated fasting blood sugar: Code(s): R73.01 - Impaired fasting glucose Category: Medical Plan: Fasting?blood?sugars?have?been?elevated.??His?A1c?is?still?normal?range Keep?working?at?a?diet?lower?in?sugars?and?starches Encouraged?exercise?and?weight?loss Will?continue?to?monitor Orders: Orders Comprehensive [place]. Panel Fast Today Z00.00 - Encounter for general adult medical examination without abnormal findings Microalbumin, Random (w Creat) Today I10 - Essential (primary) hypertension AMB Hemoglobin A1c Today R73.01 - Impaired fasting glucose Hemoglobin A1c Today R73.01 - Impaired fasting glucose Medications: Changed From lisinopril 30 mg (1.5 x 20 mg) PO DAILY 45 tabs 0RF To lisinopril 20 mg PO DAILY 45 tabs 0RF
[2024-05-12 08:55] VITALS: BP 110/80; PULSE 64; RESP 4; TEMP 36.9; O2SAT 95; BMI 36.7
== END 2024-05-12 09:09 | disposition home or self-care (01) ==
LOC: HO.HMCFM 08:34
PROVIDERS: PCP Family Medicine; Visit Provider Family Medicine
DX: I10 Essential (primary) hypertension (principal); R80.9 Proteinuria, unspecified; R73.01 Impaired fasting glucose

== ENCOUNTER → 2024-05-12 08:33 | Outpatient (BNVA) | payer BC, SELFPAY | PROVIDERS: PCP Family Medicine; Visit Provider Family Medicine ==

== ENCOUNTER 2024-08-26 08:09 | Outpatient (REF) | payer BC, SELFPAY ==
[2024-08-26 11:28] LABS: Appearance Urine Turbid; Glucose Urine UA Negative (Negative); PH 5.5 (5.0-9.0); Specific Gravity - Urine >= 1.030 (1.005-1.025); UMIC TRIGGER UA YES
[2024-08-26 11:35] LABS: Hemoglobin A1C 144.7644 umol/L; Total Hemoglobin (HGBA1C) 4141.0710 umol/L
[2024-08-26 11:52] LABS: Alanine Aminotransferase 28 U/L (0-40); Albumin Level 4.2 g/dL (3.5-5.0); Alkaline Phosphatase 74 U/L (39-117); Anion Gap 13 (12-20); Aspartate Amino Transferase 29 U/L (5-37); Blood Urea Nitrogen 13 mg/dL (9-16); Calcium 8.7 mg/dL (8.4-10.2); Carbon Dioxide 24 mmol/L (22-29); Chloride 108 mmol/L (96-108); Estimated Glomerular Filt Rate > 60; Potassium 4.1 mmol/L (3.3-5.1); Sodium 141 mmol/L (135-145); Total Protein 6.7 g/dL (6.5-8.0)
[2024-08-26 12:08] LABS: Microalbum/Creatinine Ratio Ur 72.1 ug/mg cr (<30)
== END 2024-08-26 08:10 | disposition home or self-care (01) ==
LOC: HO.WFDLDS 08:09
PROVIDERS: Visit Provider Family Medicine
DX: Z00.00 Encounter for general adult medical examination without abnormal findings (principal); Z12.5 Encounter for screening for malignant neoplasm of prostate; I10 Essential (primary) hypertension; R80.9 Proteinuria, unspecified; R73.01 Impaired fasting glucose
CPT/HCPCS: 36415; 80053; 81001; 82043; 82570; 83036; 84153

== ENCOUNTER 2024-09-01 08:17 | Outpatient (AMB) | payer BC, SELFPAY ==
--- NOTE | 2024-09-01 08:41 | MHC.PC.OV ---
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 BP today 116/68, 63p. He is on lisinopril 20mg daily. Labs drawn 08/26/24. Reviewed labs with pt. A1c 5.3%. Microalb/Creat ratio 72.1 HPI Comments History of Present Illness Details Documentation assistance for Robert Olson MD, was provided by Ravi Gaming, Psychiatric Technician on 09/01/2024 at 8:58 AM EST. I, Dr. Olson, have read, observed, and verified documentation. 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 Current occupational exposures/hazards: No Cognitive needs: No Hearing needs: No Vision needs: No Questionnaire Thrive Questionnaire Date Thrive assessed: 05/06/24 I am a: Patient What is your living situation today?: I have a steady place to live Within the past 12 months, did the food you bought not last and you didn't have the money to get more?: Never true Within the past 12 months, did you worry whether your food would run out before you got money to buy more?: Never true Do you have trouble paying for medicines?: No Do you have trouble getting transportation to medical appointments?: No Do you have trouble paying your heating and electricity bill?: No Do you have trouble taking care of your child, family member or friend?: No Do you have trouble with day-to-day activities such as bathing, preparing meals, shopping, managing finances, etc.?: No Are you currently unemployed and looking for a job?: No Are you interested in more education?: No Please select the resources that you would like help with: None Currently or been in a relationship where the following occur: No concerns reported THRIVE Score: 0 JOHN-7 AMB Questionnaire JOHN-7 Date JOHN - 7 assessed: 03/26/23 Source: Developed by Drs. Balwinder Otero, Marisa Arvizu, Sami Walker and colleagues, with an educational roxana from [email or web address]. Review of Systems Const Denies chills, Denies fatigue, Denies fever(s), Denies headache(s) and Denies weakness ENT Denies dizziness and Denies headache(s) Card Denies dyspnea Resp Denies cough, Denies dyspnea, Denies wheezing and Denies other (shortness of breath) Musc Denies numbness and Denies tingling Neuro Denies dizziness, Denies headache(s), Denies numbness, Denies tingling and Denies weakness Psych Denies anxiety and Denies depression Endo Denies fatigue Aller/Immun Denies wheezing Physical exam (Primary Care) Vital Signs: Last Vital Signs Temp 97.6 F 09/01/24 08:43 Pulse 63 09/01/24 08:43 Resp 14 09/01/24 08:43 BP 116/68 09/01/24 08:43 Pulse Ox 95 09/01/24 08:43 Oxygen Delivery Method Room Air 09/01/24 08:43 BMI result Body Mass Index 36.4 Tobacco/Smoking Status: Tobacco use Status Tobacco use date assessed 08/07/23 09/01/24 08:46 Patient Tobacco Use Status Never used Tobacco 09/01/24 08:46 e-Cigarette/Vaping Use Never Used 09/01/24 08:46 Thrive Assessment: Date of Thrive Assessment Date Thrive assessed 05/06/24 09/01/24 08:46 Currently or been in a relationship where the following occur: No concerns reported Const General: well developed; No acute distress Nutritional Appearance: well nourished Orientation/consciousness: patient oriented x3 HENMT Head: Yes normocephalic and Yes atraumatic Eyes General: appearance normal, both eyes and all related structures Pupils: Equal, round and reactive pupils present EOM: EOMs intact bilaterally Resp Effort & Inspection: normal respiratory effort Neuro General: patient oriented x3 and gait normal Cranial nerves: Yes Equal, round and reactive pupils present Psych Affect: normal affect Coding Level of Care Code Est Pt Level 4 (14188) Diagnoses Hypertension I10 Elevated fasting blood sugar R73.01 Microalbuminuria R80.9 Assessment & Plan Assessment & Plan (1) Hypertension: Code(s): I10 - Essential (primary) hypertension Category: Medical Plan: Blood pressure is well controlled on lisinopril. Goal is less than 140/90 Continue current medication (2) Elevated fasting blood sugar: Code(s): R73.01 - Impaired fasting glucose Category: Medical Plan: Patient has had mildly elevated fasting blood sugar but his A1c is 5.3% which is controlled range. Will continue to monitor (3) Microalbuminuria: Code(s): R80.9 - Proteinuria, unspecified Category: Medical Plan: Microalbumin has been high and most recently climbed significantly Appeared dehydrated by labs As above, he is on lisinopril and his cholesterol levels are controlled by atorvastatin. Does have some elevated fasting blood sugars. We discussed that we could consider an SGLT2 inhibitor if he continues to have increased protein in his urine. For now he will hydrate well and recheck microalbumin level. Orders: Orders UA CC w/rflx Micro + Cult Today R80.9 - Proteinuria, unspecified, Z00.00 - Encounter for general adult medical examination without abnormal findings Microalbumin, Random (w Creat) Today I10 - Essential (primary) hypertension, R80.9 - Proteinuria, unspecified
[2024-09-01 08:43] VITALS: BP 116/68; PULSE 63; RESP 14; TEMP 36.4; O2SAT 95; BMI 36.4
== END 2024-09-01 11:37 | disposition home or self-care (01) ==
LOC: HO.HMCFM 08:18
PROVIDERS: PCP Family Medicine; Visit Provider Family Medicine
DX: I10 Essential (primary) hypertension (principal); R73.01 Impaired fasting glucose; R80.9 Proteinuria, unspecified

== ENCOUNTER 2024-09-23 08:16 | Outpatient (REF) | payer BC, SELFPAY ==
[2024-09-23 11:29] LABS: Appearance Urine Clear; Glucose Urine UA Negative (Negative); PH 5.5 (5.0-9.0); Specific Gravity - Urine 1.025 (1.005-1.025)
[2024-09-23 12:00] LABS: Alanine Aminotransferase 23 U/L (0-40); Albumin Level 4.1 g/dL (3.5-5.0); Alkaline Phosphatase 79 U/L (39-117); Anion Gap 13 (12-20); Aspartate Amino Transferase 24 U/L (5-37); Blood Urea Nitrogen 11 mg/dL (9-16); Calcium 8.6 mg/dL (8.4-10.2); Carbon Dioxide 26 mmol/L (22-29); Chloride 108 mmol/L (96-108); Estimated Glomerular Filt Rate > 60; Potassium 4.1 mmol/L (3.3-5.1); Sodium 143 mmol/L (135-145); Total Protein 6.5 g/dL (6.5-8.0)
[2024-09-23 12:23] LABS: Microalbum/Creatinine Ratio Ur 36.7 ug/mg cr (<30)
== END 2024-09-23 08:17 | disposition home or self-care (01) ==
LOC: HO.WFDLDS 08:16
PROVIDERS: Visit Provider Family Medicine
DX: Z00.00 Encounter for general adult medical examination without abnormal findings (principal); I10 Essential (primary) hypertension; R80.9 Proteinuria, unspecified
CPT/HCPCS: 36415; 80053; 81003; 82043; 82570

== ENCOUNTER 2024-09-29 14:37 | Outpatient (AMB) | payer BC, SELFPAY ==
--- NOTE | 2024-09-29 14:38 | MHC.PC.OV ---
Vital Signs 09/29/24 14:42 Height 5 ft 10 in Weight 253 lb 8 oz BMI 36.4 BP 120/74 Blood Pressure Location Lt brachial Position Sitting Respiration 12 Pulse 58 Pulse Source Pulse Oximeter Temp 96.4 F L Temp Source Temporal Artery Scan Pulse Oximetry (%) 97 Oxygen Delivery Method Room Air Intake Visit Reasons: Follow-up elevated urine microalbumin levels Intake Note: Follow up on elevated urine microalbumin levels. Medicare Insurance Specialist Required: No Allergies No Known Allergies Allergy (Verified 09/29/24 14:40) Medication List - Last Reconciled 09/29/24 by Robert Olson MD atorvastatin 10 mg PO BEDTIME 90 days lisinopril 20 mg PO DAILY Tobacco use date assessed: 09/29/24 Dental Screening Dental Screen Date: 09/29/24 Did you have a dental visit in the last 12 months?: Yes Did you have a dental problem in the last 6 months where you did not have access to dental care?: No Was dental information given to patient?: Patient has dentist HPI Follow-up elevated urine microalbumin levels HPI Details 49 y/o male presents to review elevated urine microalbumin levels. Labs drawn 09/23/24. Reviewed labs with pt. Microalb/creat ratio 36.7 ug/mg cr, previously at 72.1. BP today 120/74, 58p. He is on lisinopril 20mg daily. 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 1. Little interest or pleasure in doing things: not at all 2. Feeling down, depressed, or hopeless: not at all 3. Trouble falling or staying asleep, or sleeping too much: not at all 4. Feeling tired or having little energy: not at all 5. Poor appetite or overeating: not at all 6. Feeling bad about yourself - or that you are a failure or have let yourself or your family down: not at all 7. Trouble concentrating on things, such as reading the newspaper or watching television: not at all 8. Moving or speaking so slowly that other people could have noticed. Or the opposite - being so fidgety or restless that you have been moving around a lot more than usual: not at all 9. Thoughts that you would be better off or of hurting yourself in some way: not at all Total score: 0 Depression Screening Interpretation: Negative Depression Screening Done: Yes 15126 - PHQ-9 Billing: Yes Source: Developed by Drs. Balwinder Otero, Marisa Arvizu, Sami Walker and colleagues, with an educational roxana from [employer]. Thrive Questionnaire Date Thrive assessed: 09/29/24 I am a: Patient What is your living situation today?: I have a steady place to live Within the past 12 months, did the food you bought not last and you didn't have the money to get more?: Never true Within the past 12 months, did you worry whether your food would run out before you got money to buy more?: Never true Do you have trouble paying for medicines?: No Do you have trouble getting transportation to medical appointments?: No Do you have trouble paying your heating and electricity bill?: No Do you have trouble taking care of your child, family member or friend?: No Do you have trouble with day-to-day activities such as bathing, preparing meals, shopping, managing finances, etc.?: No Are you currently unemployed and looking for a job?: No Are you interested in more education?: No Please select the resources that you would like help with: None Currently or been in a relationship where the following occur: No concerns reported THRIVE Score: 0 JOHN-7 AMB Questionnaire JOHN-7 Date JOHN - 7 assessed: 09/29/24 Feeling nervous, anxious, or on edge: 0 = Not at all Not being able to stop or control worryin = Not at all Worrying too much about different things: 0 = Not at all Trouble relaxin = Not at all Being so restless that it is hard to sit still: 0 = Not at all Becoming easily annoyed or irritable: 0 = Not at all Feeling afraid as if something awful might happen: 0 = Not at all Total JONH-7 score (0-4 normal; 5-9 mild; 10-14 moderate; 15-21 severe): 0 Source: Developed by Drs. Balwinder Otero, Marisa Arvizu, Sami Walker and colleagues, with an educational roxana from [employer]. JOHN-7 Assessment Billing JOHN-7 Assessment Tool: JOHN-7 Assessment 02097 Physical exam (Primary Care) Vital Signs: Last Vital Signs Temp 96.4 F L 09/29/24 14:42 Pulse 58 09/29/24 14:42 Resp 12 09/29/24 14:42 BP 120/74 09/29/24 14:42 Pulse Ox 97 09/29/24 14:42 Oxygen Delivery Method Room Air 09/29/24 14:42 BMI result Body Mass Index 36.4 Tobacco/Smoking Status: Tobacco use Status Tobacco use date assessed 09/29/24 09/29/24 14:44 Patient Tobacco Use Status Never used Tobacco 09/29/24 14:44 e-Cigarette/Vaping Use Never Used 09/29/24 14:44 PHQ-9: PHQ-9 Score PHQ-9: Total score 0 09/29/24 15:05 Depression Screening Interpretation: Negative Thrive Assessment: Date of Thrive Assessment Date Thrive assessed 09/29/24 09/29/24 14:44 Currently or been in a relationship where the following occur: No concerns reported Coding Level of Care Code Est Pt Level 4 (81545) Diagnoses Microalbuminuria R80.9 Hypertension I10 Elevated fasting blood sugar R73.01 Additional Codes JOHN-7 Assessment Billing - JOHN-7 Assessment Tool: JOHN-7 Assessment 32474 ([id number]) PHQ-9 - 68332 - PHQ-9 Billing: Yes ([id number]) Assessment & Plan Assessment & Plan (1) Microalbuminuria: Code(s): R80.9 - Proteinuria, unspecified Category: Medical Plan: Significantly improved with improved hydration. He is also on lisinopril Controlling blood pressure, lipids and blood sugar. We had discussed using an SGLT2 medication such as Januvia if no significant improvement. Will hold off on this for now Will continue to monitor (2) Hypertension: Code(s): I10 - Essential (primary) hypertension Category: Medical Plan: Blood pressure is controlled. Goal is less than 140/90 Continue current medication (3) Elevated fasting blood sugar: Code(s): R73.01 - Impaired fasting glucose Category: Medical Plan: Fasting blood sugar at most recent check was within normal limits Continue working on a diet low in sugars and starches Orders: Orders Microalbumin, Random (w Creat) Today I10 - Essential (primary) hypertension, R80.9 - Proteinuria, unspecified Comprehensive [place]. Panel Fast Today E78.00 - Pure hypercholesterolemia, unspecified, Z00.00 - Encounter for general adult medical examination without abnormal findings Hemoglobin A1c Today R73.01 - Impaired fasting glucose Lipid Panel Today E78.00 - Pure hypercholesterolemia, unspecified, Z00.00 - Encounter for general adult medical examination without abnormal findings
[2024-09-29 14:42] VITALS: BP 120/74; PULSE 58; RESP 12; TEMP 35.8; O2SAT 97; BMI 36.4
== END 2024-09-29 15:16 | disposition home or self-care (01) ==
LOC: HO.HMCFM 14:37
PROVIDERS: PCP Family Medicine; Visit Provider Family Medicine
DX: R80.9 Proteinuria, unspecified (principal); I10 Essential (primary) hypertension; R73.01 Impaired fasting glucose

== ENCOUNTER → 2024-09-29 14:37 | Outpatient (BNVA) | payer BC, SELFPAY | PROVIDERS: PCP Family Medicine; Visit Provider Family Medicine | DX: I10 Essential (primary) hypertension (principal); R80.9 Proteinuria, unspecified; R73.01 Impaired fasting glucose; E78.00 Pure hypercholesterolemia, unspecified | CPT/HCPCS: 96127 ==

== ENCOUNTER 2025-02-10 08:01 | Outpatient (REF) | payer BC, SELFPAY ==
[2025-02-10 11:42] LABS: Alanine Aminotransferase 28 U/L (0-40); Albumin Level 4.2 g/dL (3.5-5.0); Alkaline Phosphatase 81 U/L (39-117); Anion Gap 12 (12-20); Aspartate Amino Transferase 25 U/L (5-37); Blood Urea Nitrogen 12 mg/dL (9-16); Calcium 8.8 mg/dL (8.4-10.2); Carbon Dioxide 24 mmol/L (22-29); Chloride 109 mmol/L (96-108); Cholesterol 184 mg/dL (<200); Estimated Glomerular Filt Rate > 60; HDL Cholesterol 44 mg/dL (>40); Potassium 4.0 mmol/L (3.3-5.1); Sodium 141 mmol/L (135-145); Total Protein 6.6 g/dL (6.5-8.0); Triglycerides 92 mg/dL (<150)
[2025-02-10 11:51] LABS: Microalbum/Creatinine Ratio Ur 44.1 ug/mg cr (<30)
== END 2025-02-10 08:02 | disposition home or self-care (01) ==
LOC: HO.WFDLDS 08:01
PROVIDERS: Visit Provider Family Medicine
DX: Z00.00 Encounter for general adult medical examination without abnormal findings (principal); I10 Essential (primary) hypertension; E78.00 Pure hypercholesterolemia, unspecified; R80.9 Proteinuria, unspecified; R73.01 Impaired fasting glucose
CPT/HCPCS: 36415; 80053; 80061; 82043; 82570; 83036

== ENCOUNTER 2025-02-17 10:22 | Outpatient (AMB) | payer BC, SELFPAY ==
--- NOTE | 2025-02-17 10:30 | MHC.PC.OV ---
Vital Signs 02/17/25 10:32 Height 5 ft 10 in Weight 258 lb BMI 37.0 BP 116/82 Blood Pressure Location Lt brachial Position Sitting Pulse 60 Pulse Source Pulse Oximeter Pulse Oximetry (%) 97 Oxygen Delivery Method Room Air Handedness Right Intake Visit Reasons: f/u HTN, Elevated Fasting BS & Microalbumin Intake Note: Ramesh is a 49 year old right hand dominant male who presents today for a follow up. Allergies No Known Allergies Allergy (Verified 02/17/25 10:33) Medication List - Last Reconciled 02/17/25 by Robert Olson MD atorvastatin 10 mg PO BEDTIME 90 days empagliflozin (Jardiance) 10 mg PO QAM 90 days lisinopril 20 mg PO DAILY 90 days Tobacco use date assessed: 09/29/24 Dental Screening Dental Screen Date: 09/29/24 HPI f/u HTN, Elevated Fasting BS & Microalbumin HPI Details 49 y/o male presents to f/u HTN, elevated FBS, microalbumin. BP today 116/82, 60p. He is on lisinopril 20mg daily. Labs drawn 02/10/25. Reviewed labs with pt. A1c 5.4%. Fasting glucose 107. Triglycerides 92. TC 184. LDL 122. HDL 44. 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 Current occupational exposures/hazards: No Cognitive needs: No Hearing needs: No Vision needs: No Questionnaire Thrive Questionnaire Date Thrive assessed: 05/06/24 What is your living situation today?: I have a steady place to live Within the past 12 months, did the food you bought not last and you didn't have the money to get more?: Never true Within the past 12 months, did you worry whether your food would run out before you got money to buy more?: Never true Do you have trouble paying for medicines?: No Do you have trouble getting transportation to medical appointments?: No Do you have trouble paying your heating and electricity bill?: No Do you have trouble taking care of your child, family member or friend?: No Do you have trouble with day-to-day activities such as bathing, preparing meals, shopping, managing finances, etc.?: No Are you currently unemployed and looking for a job?: No Are you interested in more education?: No Currently or been in a relationship where the following occur: No concerns reported THRIVE Score: 0 JOHN-7 AMB Questionnaire JOHN-7 Date JOHN - 7 assessed: 09/29/24 Source: Developed by Drs. Balwinder Otero, Marisa Arvizu, Sami Walker and colleagues, with an educational roaxna from [employer]. Review of Systems Const Denies chills, Denies fatigue, Denies fever(s), Denies headache(s) and Denies weakness ENT Denies dizziness and Denies headache(s) Card Denies chest pain, Denies lightheadedness, Denies dyspnea and Denies other (Palpitations) Resp Denies cough, Denies dyspnea, Denies wheezing and Denies other ( shortness of breath) Musc Denies numbness and Denies tingling Neuro Denies dizziness, Denies headache(s), Denies numbness, Denies tingling, Denies paresthesias and Denies weakness Psych Denies anxiety and Denies depression Endo Denies fatigue Aller/Immun Denies wheezing Physical exam (Primary Care) Vital Signs: Last Vital Signs Pulse 60 02/17/25 10:32 BP 116/82 02/17/25 10:32 Pulse Ox 97 02/17/25 10:32 Oxygen Delivery Method Room Air 02/17/25 10:32 BMI result Body Mass Index 37.0 Tobacco/Smoking Status: Tobacco use Status Tobacco use date assessed 09/29/24 02/17/25 10:32 Patient Tobacco Use Status Never used Tobacco 02/17/25 10:32 e-Cigarette/Vaping Use Never Used 02/17/25 10:32 Thrive Assessment: Date of Thrive Assessment Date Thrive assessed 05/06/24 02/17/25 10:32 Currently or been in a relationship where the following occur: No concerns reported Const General: no acute distress and well developed Nutritional Appearance: well nourished Orientation/consciousness: patient oriented x3 HENMT Head: Yes normocephalic and Yes atraumatic Eyes General: appearance normal, both eyes and all related structures Pupils: Equal, round and reactive pupils present EOM: EOMs intact bilaterally Resp Effort & Inspection: normal respiratory effort Auscultation: clear to auscultation bilaterally Cardio Rate: regular rate Rhythm: regular rhythm Heart sounds: S1 normal heart sound present, S2 normal heart sound present, no gallops, no murmurs and no rubs Neuro General: patient oriented x3 and gait normal Cranial nerves: Yes Equal, round and reactive pupils present Psych Affect: normal affect Coding Level of Care Code Est Pt Level 4 (26346) Diagnoses Hypertension I10 Hypercholesterolemia E78.00 Elevated fasting blood sugar R73.01 Microalbuminuria R80.9 Assessment & Plan Assessment & Plan (1) Hypertension: Code(s): I10 - Essential (primary) hypertension Category: Medical Plan: Blood pressure is well controlled. Goal is less than 140/90 Continue current medication (2) Hypercholesterolemia: Code(s): E78.00 - Pure hypercholesterolemia, unspecified Category: Medical Plan: LDL cholesterol is too high. He notes he has been inconsistent with atorvastatin Work on consistency with your medication Will recheck with next blood draw in a few months (3) Elevated fasting blood sugar: Code(s): R73.01 - Impaired fasting glucose Category: Medical Plan: Recurrent elevated fasting blood sugars though A1c in normal range. Encouraged a diet lower in sugars and starches Will monitor (4) Microalbuminuria: Code(s): R80.9 - Proteinuria, unspecified Category: Medical Plan: Ongoing mild microalbuminuria Continue control of blood pressure, blood sugar and cholesterol. Continue lisinopril Will try Jardiance for renal protection Orders: Orders Hemoglobin A1c Today R73.01 - Impaired fasting glucose Microalbumin, Random (w Creat) Today I10 - Essential (primary) hypertension, R80.9 - Proteinuria, unspecified Comprehensive [place]. Panel Fast Today R73.01 - Impaired fasting glucose, Z00.00 - Encounter for general adult medical examination without abnormal findings Lipid Panel Today E78.00 - Pure hypercholesterolemia, unspecified, Z00.00 - Encounter for general adult medical examination without abnormal findings Medications: New empagliflozin (Jardiance) 10 mg PO QAM 90 tabs 3RF 90 days R73.01 - Impaired fasting glucose, R80.9 - Proteinuria, unspecified Changed From lisinopril 20 mg PO DAILY 45 tabs 0RF To lisinopril 20 mg PO DAILY 90 tabs 3RF 90 days Refilled atorvastatin 10 mg PO BEDTIME 90 tabs 2RF 90 days
[2025-02-17 10:32] VITALS: BP 116/82; PULSE 60; O2SAT 97; BMI 37.0
== END 2025-02-17 11:25 | disposition home or self-care (01) ==
LOC: HO.HMCFM 10:23
PROVIDERS: PCP Family Medicine; Visit Provider Family Medicine
DX: I10 Essential (primary) hypertension (principal); E78.00 Pure hypercholesterolemia, unspecified; R73.01 Impaired fasting glucose; R80.9 Proteinuria, unspecified